=== PATIENT | female | born 1950 | race Caucasian/White ===

== ENCOUNTER 2025-07-12 11:44 | Observation (INO) | payer MEDICARE, SELFPAY ==
--- OUTSIDE RECORDS SUMMARY | 2024-06-26 03:00 | XMS_ITS ---
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 Rosa No Primary Care Provider [phone] Migration, Provider Unavailable Unavailable REASON FOR VISIT EMR-Akshat Encounters Encounter Location Date Provider Diagnosis [facility] [address] [place] [address] 06/26/2024 Provider Migration Plan Of Treatment Medication Medication Name Sig Start Date Stop Date Notes Metoprolol Succinate 50 mg Capsule(s) 1 BY MOUTH every day; Duration: 0 11/06/2021 08/12/2023 Rx Refill Request,discontinu ereason:Refilled *Pick strength-form from [facility] for eRX* Cardizem CD 240 MG Capsule Extended Release 24 Hour 1 Oral every day; Duration: 0 11/06/2021 11/06/2021 duplicate (diltiazem),discon tinuereason:Discon tinued hydroCHLOROthiazide 25 MG Tablet 1 Oral every day; Duration: 90 02/12/2024 02/12/2024 Rx Refill Request,discontinu ereason:Refilled Xarelto 20 MG Tablet 1 Oral every day; Duration: 02/12/2024 02/12/2024 Rx Refill Request,discontinu ereason:Refilled dilTIAZem HCl ER Coated Beads 240 MG Capsule Extended Release 24 Hour 1 Oral every day; Duration: 0 01/14/2022 06/27/2022 ,discontinuereason :Discontinued Benzonatate 100 MG Capsule 1 Oral three times a day; Duration: 10 05/04/2022 05/13/2022 Cipro 500 MG Tablet 1 Oral every 12 hours; Duration: 07/10/2023 07/16/2023 predniSONE 20 MG Tablet Oral as directed ; Duration: 08/28/2022 09/05/2022 hydrOXYzine HCl 10 MG Tablet 1 Oral two times a day; Duration: 08/28/2022 01/12/2023 ,discontinuereason :Discontinued Ezetimibe 10 MG Tablet 1 Oral every day; Duration: 02/12/2024 02/12/2024 Rx Refill Request,discontinu ereason:Refilled Escitalopram Oxalate 10 MG Tablet 1 Oral every day; Duration: 08/12/2023 12/15/2023 increasing to 20mg,discontinuere ason:Discontinued Metoprolol Succinate ER 100 MG Tablet Extended Release 24 Hour 1 Oral every day; Duration: 08/12/2023 08/12/2023 entered wrong dose,discontinuere ason:Discontinued Metoprolol Succinate ER 50 MG Tablet Extended Release 24 Hour 1 Oral every day; Duration: 02/12/2024 02/12/2024 Rx Refill Request,discontinu ereason:Refilled Ciprofloxacin HCl 500 MG Tablet 1 Oral two times a day; Duration: 03/07/2022 03/11/2022 Gabapentin 300 MG Capsule 1 Oral every night at bedtime; Duration: 08/12/2023 08/12/2023 Rx Refill Request,discontinu ereason:Refilled Triamcinolone Acetonide 0.1 % Cream External two times a day; Duration: 11/01/2022 06/15/2023 ,discontinuereason :Discontinued Escitalopram Oxalate 20 MG Tablet 1 Oral every day; Duration: 12/16/2023 06/12/2024 Lisinopril 20 MG Tablet 1 Oral two times a day; Duration: 11/24/2023 11/24/2023 Rx Refill Request,discontinu ereason:Refilled traMADol HCl 50 MG Tablet 0.5 to 1 Oral three times a day; Duration: 01/14/2022 01/12/2023 ,discontinuereason :Discontinued,PRN Reason:for pain Escitalopram Oxalate 5 MG Tablet 1 Oral two times a day; Duration: 08/28/2022 11/17/2022 ,discontinuereason :Refilled Omeprazole 20 MG Capsule Delayed Release 1 Oral at bed time; Duration: 90 04/22/2023 07/20/2023 hydroCHLOROthiazide 12.5 MG Tablet 1 Oral every day; Duration: 0 01/09/2022 03/06/2022 ,discontinuereason :Discontinued Next Appt Details Provider Name:Dr. Rosa smith, 06/15/2026 01:30:00 PM, [address] [place], [address], [phone] Progress Notes * LEVYChantelle PALENCIASushma:1950 (74 yo F)Acc No.[id number]:06/26/2024 Patient: Susan MCCLENDON :1950 A ge:73 Y S ex:Female Phone: Address:[address] [place] [address], [phone] * Refills Stop Ezetimibe Tablet, 10 MG, Oral, 90, 1, every day, 90 Stop Gabapentin Capsule, 300 MG, Oral, 90, 1, every night at bedtime, 90 Stop Lisinopril Tablet, 20 MG, Oral, 90, 1, every day, 90 Stop Benzonatate Capsule, 100 MG, Oral, 30, 1, three times a day, 10 Stop Escitalopram Oxalate Tablet, 5 MG, Oral, 90, 1, every night at bedtime, 90 Stop Ezetimibe Tablet, 10 MG, Oral, 90, 1, every day, 0 Stop Ezetimibe Tablet, 10 MG, Oral, 90, 1, every day, 90 Stop Lisinopril Tablet, 20 MG, Oral, 180, 1, two times a day, 90 Stop Ezetimibe Tablet, 10 MG, Oral, 90, 1, every day, 90 Stop Gabapentin Capsule, 300 MG, Oral, 90, 1, every night at bedtime, 90 Stop Gabapentin Capsule, 300 MG, Oral, 90, 1, every night at bedtime, 90 Stop Omeprazole Capsule Delayed Release, 20 MG, Oral, 90, 1, at bed time, 90 Stop Ezetimibe Tablet, 10 MG, Oral, 1, every day, 0 Stop Ezetimibe Tablet, 10 MG, Oral, 90, 1, every day, 90 Stop hydroCHLOROthiazide Tablet, 25 MG, Oral, 90, 1, every day, 90 Stop Omeprazole Capsule Delayed Release, 20 MG, Oral, 90, 1, at bed time, 90 Stop Gabapentin Capsule, 300 MG, Oral, 90, 1, every night at bedtime, 90 Stop Gabapentin Capsule, 300 MG, Oral, 90, 1, every night at bedtime, 90 Stop Lisinopril Tablet, 20 MG, Oral, 60, 1, two times a day, 0 Stop Lisinopril Tablet, 20 MG, Oral, 180, 1, two times a day, 90 Stop Lisinopril Tablet, 20 MG, Oral, 180, 1, two times a day, 90 Stop Metoprolol Succinate Capsule(s), 50 mg, BY MOUTH, 1, every day, 0 Stop Omeprazole Capsule Delayed Release, 20 MG, Oral, 90, 1, at bed time, 90 Stop Escitalopram Oxalate Tablet, 10 MG, Oral, 90, 1, every day, 90 Stop Escitalopram Oxalate Tablet, 20 MG, Oral, 90, 1, every day, 90 Stop Gabapentin Capsule, 300 MG, Oral, 90, 1, every night at bedtime, 90 Stop Omeprazole Capsule Delayed Release, 20 MG, Oral, 90, 1, at bed time, 90 Stop Triamcinolone Acetonide Cream, 0.1 %, External, 30, two times a day, 0 Stop Ciprofloxacin HCl Tablet, 500 MG, Oral, 10, 1, two times a day, 5 Stop hydrOXYzine HCl Tablet, 10 MG, Oral, 10, 1, two times a day, 0 Stop Lisinopril Tablet, 20 MG, Oral, 180, 1, two times a day, 90 Stop Lisinopril Tablet, 20 MG, Oral, 180, 1, two times a day, 90 Stop dilTIAZem HCl ER Coated Beads Capsule Extended Release 24 Hour, 240 MG, Oral, 90, 90 Stop Escitalopram Oxalate Tablet, 10 MG, Oral, 90, 1, every day, 90 Stop Lisinopril Tablet, 20 MG, Oral, 180, 1, two times a day, 90 Stop Omeprazole Capsule Delayed Release, 20 MG, Oral, 90, 1, at bed time, 90 Stop Ezetimibe Tablet, 10 MG, Oral, 90, 1, every day, 90 Stop dilTIAZem HCl ER Coated Beads Capsule Extended Release 24 Hour, 240 MG, Oral, 1, every day, 0 Stop Escitalopram Oxalate Tablet, 5 MG, Oral, 30, 1, every night at bedtime, 30 Stop Ezetimibe Tablet, 10 MG, Oral, 90, 1, every day, 0 Stop predniSONE Tablet, 20 MG, Oral, 18, as directed, 9 Stop Cipro Tablet, 500 MG, Oral, 14, 1, every 12 hours, 7 Stop Ezetimibe Tablet, 10 MG, Oral, 90, 90 Stop hydroCHLOROthiazide Tablet, 25 MG, Oral, 90, 1, every day, 90 Stop Omeprazole Capsule Delayed Release, 20 MG, Oral, 90, 1, at bed time, 90 Stop Xarelto Tablet, 20 MG, Oral, 90, 1, every day, 0 Stop Xarelto Tablet, 20 MG, Oral, 90, 1, every day, 90 Stop Xarelto Tablet, 20 MG, Oral, 90, 1, every day, 90 Stop Cardizem CD Capsule Extended Release 24 Hour, 240 MG, Oral, 1, every day, 0 Stop hydroCHLOROthiazide Tablet, 25 MG, Oral, 90, 1, every day, 90 Stop Xarelto Tablet, 20 MG, Oral, 90, 1, every day, 90 Stop Gabapentin Capsule, 300 MG, Oral, 90, 1, every night at bedtime, 90 Stop hydroCHLOROthiazide Tablet, 25 MG, Oral, 90, 1, every day, 90 Stop Escitalopram Oxalate Tablet, 5 MG, Oral, 82, 1, two times a day, 41 Stop Lisinopril Tablet, 20 MG, Oral, 180, 1, two times a day, 90 Stop traMADol HCl Tablet, 50 MG, Oral, 30, 0.5 to 1, three times a day, 0 Stop Lisinopril Tablet, 20 MG, Oral, 1, every day, 0 Stop Omeprazole Capsule Delayed Release, 20 MG, Oral, 90, 1, at bed time, 90 Stop Xarelto Tablet, 20 MG, Oral, 1, every day, 0 Stop Metoprolol Succinate ER Tablet Extended Release 24 Hour, 100 MG, Oral, 90, 1, every day, 90 Stop Metoprolol Succinate ER Tablet Extended Release 24 Hour, 50 MG, Oral, 90, 1, every day, 90 Stop Gabapentin Capsule, 300 MG, Oral, 1, every night at bedtime, 0 Stop Gabapentin Capsule, 300 MG, Oral, 90, 1, every night at bedtime, 90 Stop hydroCHLOROthiazide Tablet, 12.5 MG, Oral, 1, every day, 0 Stop hydroCHLOROthiazide Tablet, 25 MG, Oral, 1, every day, 0 Stop Omeprazole Capsule Delayed Release, 20 MG, Oral, 90, 1, at bed time, 90 Stop Omeprazole Capsule Delayed Release, 20 MG, Oral, 90, 1, at bed time, 90 Stop Metoprolol Succinate ER Tablet Extended Release 24 Hour, 50 MG, Oral, 90, 1, every day, 90 Subjective: * Chief Complaints: * E MR-Akshat Objective: Past Vitals:* 08/07/2023 BP: 118/70 mm Hg, HR: 99 /mi n, Oxygen sat %: 97 %, Wt: 280.01 lbs, Wt-k.01 kg * 07/10/2023 BP: 138/76 mm Hg, HR: 57 /mi n, Oxygen sat %: 97 %, Wt: 277.12 lbs, Wt-k.70 kg * * Date:
--- OUTSIDE RECORDS SUMMARY | 2024-06-27 03:00 | XMS_ITS ---
Author Organization [facility] Address [address] [place] [address] Care Team Providers Care Visitor Services Assistant Name Role Phone Dr. Rosa No Primary Care Provider [phone] Migration, Provider Unavailable Unavailable Allergies Allergen (clinical drug ingredient) Drug/Non Drug Allergy documented on EMR Reaction Allergy Type Onset Date Status Aleve hives Drug Allergy 11/06/2021 Active aspirin Aspirin hives Drug Allergy 11/06/2021 Active Biaxin hives Drug Allergy 11/06/2021 Active Darvon Altered mental status Drug Allergy 11/06/2021 Active erythromycin Erythromycin hives Drug Allergy 11/06/2021 Active azithromycin Zithromax hives Drug Allergy 11/06/2021 Act luther codeine Codeine euphoria Drug Allergy 11/06/2021 Active Morphine and Codiene TALWIN caused hives Drug Allergy 01/09/2022 Active Non-steroidal anti-inflammatory agent (FN) NSAIDs hives Drug Allergy 11/06/2021 Active Penicillin hives Drug Allergy 11/06/2021 Activ e salicylate (FN) Salicylates hives Drug Allergy Active Substance with sulfonamide structure and antibacterial mechanism of action (substance) Sulfa Antibiotics hives Drug Allergy 11/06/2021 Active REASON FOR VISIT EMR-Akshat Medications Medication SIG (Take, Route, Frequency, Duration) Notes Start Date End Date Status Gabapentin 300 MG Capsule 1 Oral every n ight at bedtime; Duration: 06/09/2024 12/05/2024 Active Lisinopril 20 MG Tablet 1 Oral two times a day; Duration: 06/08/2024 12/04/2024 Active Xarelto 20 MG Tablet 1 Oral every day; Duration: 06/09/2024 12/05/2024 Active hydroCHLOROthiazide 25 MG Tablet 1 Oral every day; Duration: 06/09/2024 12/05/2024 Active Ezetimibe 10 MG Tablet 1 Oral every day; Duration: 06/09/2024 12/05/2024 Active Metoprolol Succinate ER 50 M G Tablet Extended Release 24 Hour 1 Oral every day; Duration: 06/09/2024 12/05/2024 Active Social History Social History Additional Details Category Social Info Options Details Migrated Social History Migrated Social History Marital status: , Number of children:2 , Employment:Retired , Tobacco history:Never smoker Encounters Encounter Location Date Provider Diagnosis [facility] [address] [place] [address] 06/27/2024 Provider Migration Plan Of Treatment Next Appt Details Provider Name:Dr. Rosa smith, 06/15/2026 01:30:00 PM, [address], [place], [address], [phone] Progress Notes * LEVYChantelle PALENCIASharonB:1950 (74 yo F)Acc No.[id number]:06/27/2024 Patient: Susan MCCLENDON :1950 A ge:73 Y S ex:Female Phone: Address:[address] [place] [address], [phone] Subjective: * Chief Complaints: * E MR-Akshat * Surgical History: Tubal ligation ,notes : 1979 _ Colonoscopy ,notes : 2019 _ Arthrocentesis 0 Arthroplasty, knee, condyle and plateau; medial AND lateral compartments with or without patella res ,notes : left 02/19/2019 Cholecystectomy 1 Knee arthroplasty ,notes : right - total knee 7 * Family History: F ather: Hypertension. M other: Breast cancer, H ypertension. D aughter: Breast cancer, H ypertension. * Social History: M igrated Social History: M igrated Social History: Marital status:,Number of children:2,Employment:Retired,Tobacco history:Never smoker. * Medications: T akingGabapentin 300 MG Capsule 1 Oral every night at bedtime , stop date 12/05/2024Lisinopril 20 MG Tablet 1 Oral two times a day , stop date 12/04/2024Ezetimibe 10 MG Tablet 1 Oral every day , stop date 12/05/2024Metoprolol Succinate ER 50 MG Tablet Extended Release 24 Hour 1 Oral every day , stop date 12/05/2024hydroCHLOROthiazide 25 MG Tablet 1 Oral every day , stop date 12/05/2024Xarelto 20 MG Tablet 1 Oral every day , stop date 12/05/2024Taking Gabapentin 300 MG Capsule 1 Oral every night at bedtime , stop date 12/05/2024Taking Lisinopril 20 MG Tablet 1 Oral two times a day , stop date 12/04/2024Taking Ezetimibe 10 MG Tablet 1 Oral every day , stop date 12/05/2024Taking Metoprolol Succinate ER 50 MG Tablet Extended Release 24 Hour 1 Oral every day , stop date 12/05/2024Taking hydroCHLOROthiazide 25 MG Tablet 1 Oral every day , stop date 12/05/2024Taking Xarelto 20 MG Tablet 1 Oral every day , stop date 12/05/2024 * Allergies: A leve: hives - Allergy - Onset Date 11/06/2021spirin: hives - Allergy - Onset Date 11/06/2021iaxin: hives - Allergy - Onset Date 11/06/2021arvon: Altered mental status - Allergy - Onset Date 11/06/2021Erythromycin: hives - Allergy - Onset Date 11/06/2021Zithromax: hives - Allergy - Onset Date 11/06/2021odeine: euphoria - Allergy - Onset Date 11/06/2021Morphine and Codiene : TALWIN caused hives - Allergy - Onset Date 01/09/2022NSAIDs: hives - Allergy - Onset Date 11/06/2021enicillin: hives - Allergy - Onset Date 11/06/2021alicylates: hives - Allergy - Onset Date 11/06/2021ulfa Antibiotics: hives - Allergy - Onset Date 11/06/2021 Objective: Past Vitals:* 08/07/2023 BP: 118/70 mm Hg, HR: 99 /mi n, Oxygen sat %: 97 %, Wt: 280.01 lbs, Wt-k.01 kg * 07/10/2023 BP: 138/76 mm Hg, HR: 57 /mi n, Oxygen sat %: 97 %, Wt: 277.12 lbs, Wt-k.70 kg * * Date:
--- NOTE | ~2025-07-12 | CT_ITS ---
EXAM/PROCEDURE: CT abdomen pelvis wo con HISTORY: CT showing possible ruptured appy COMPARISON: None available. TECHNIQUE: Noncontrast CT of abdomen and pelvis FINDINGS: Along the inferior margin of the cecum, there is a 2.9 x 2.4 x 2.2 cm complex appearing fluid accumulation with adjacent strandy changes and small component of possible normal size appendix extending anteriorly on image 64 series 601. No free air or pneumatosis seen. Mild sigmoidal diverticular disease with mild stranding about the sigmoid colon as seen on images 61 through 69 in the left para midline region. No severe inflammatory appearing changes. No hydroureteronephrosis. Gallbladder removed. Fatty liver changes. Lung bases clear and heart size normal. Pancreas spleen stomach and adrenal glands appear normal. No bulky mesenteric or retroperitoneal lymphadenopathy or masses. Diffuse degenerative changes throughout the bones. IMPRESSION: 1. A 2.9 cm complex fluid accumulation in the expected location of the appendix may represent ruptured appendix and developing abscess. 2. Minimal pericolonic strandy changes about the proximal sigmoid colon with diverticuli are noted; very early or mild diverticulitis in this area is not excluded. Reviewed, dictated and finalized at location A. IDDING MACHINE OPERATOR IMPRESSION: 1. A 2.9 cm complex fluid accumulation in the expected location of the appendix may represent ruptured appendix and developing abscess. 2. Minimal pericolonic strandy changes about the proximal sigmoid colon with di verticuli are noted; very early or mild diverticulitis in this area is not excl uded.
--- OUTSIDE RECORDS SUMMARY | 2025-07-12 09:08 | XMS_ITS | Encounter Summary ---
Author Organization [facility] Healthcare Address [address] [place] [address] Care Team Providers Care Automation Tester Name Role Phone Rosa No MD Primary Care Provider Izzy Gomez MD Unavailable [phone] Reason for Referral * MRI/CAT/PET Scan (Routine) - Closed Specialty Diagnoses / Procedures Referred By Micah alcantara Referred To Contact Radiology Diagnoses Endometrial cancer Procedures CT Chest Abdomen Pelvis W Contrast Daja Quiñones MD [address] [address] Phone: tel: fax: [address] [phone] Referral ID Status Reason Start Date Expiration Date Visits Re quested Visits Authorized [id number] Closed 03/31/2025 04/30/2026 1 1 OW FILLER Reason for Visit * MRI/CAT/PET Scan (Routine) - Closed Specialty Diagnoses / Procedures Referred By Contac t Referred To Contact Radiology Diagnoses Endometrial cancer Procedures CT Chest Abdomen Pelvis W Contrast Daja Quiñones MD [address] [address] Phone: tel: fax: [address] [phone] Referral ID Status Reason Start Date Expiration Date Visits Re quested Visits Authorized [id number] Closed 03/31/2025 04/30/2026 1 1 Encounter Details Date Type Department Care Team (Latest Contact Info) Description 07/12/2025 9:08 AM PILLOW FILLER Hospital Encounter [facility] [address] [place] [address] Endometrial cancer Social History Tobacco Use Types Packs/Day Years Used Date Smoking Tobacco: Never Smokeless Tobacco: Never Alcohol Use Standard Drinks/Week Comments Never 0 (1 standard drink = 0.6 oz pur e alcohol) AUDIT-C Answer Date Recorded Q1: How often do you have a drink containing alcohol? Never 04/07/2025 Q2: How many drinks containi ng alcohol do you have on a typical day when you are drinking? Patient does not drink Q3: How often do you have si x or more drinks on one occasion? Never 04/07/2025 Personal Safety Answer Date Recorded Have you ever been in or are you currently in a harmful physical or emotional relationship or is someone making you feel afraid or unsafe? Denies 04/07/2025 Comments No Sex and Gender Information Value Date Recorded Sex Assigned at Not on file Legal Sex Female 6:09 PM PILLOW FILLER Gender Identity Not on file Sexual Orientation Not on file documented as of this encounter Plan of Treatment Not on file documented as of this encounter Procedures Procedure Name Priority Date/Time Associated Diagnosis Comments CT CHEST ABDOMEN PELVIS W CONTRAST Schedule Routine, Read Routine (OP Routine) 07/12/2025 10:17 AM PILLOW FILLER Endometrial cancer documented in this encounter Results * CT Chest Abdomen Pelvis W Contrast (07/12/2025 10:17 AM PILLOW FILLER) Anatomical Region Laterality Modality Body N/A Computed Tomogra phy 07/12/2025 11:2 7 AM PILLOW FILLER Impressions 07/12/2025 12:53 PM PILLOW FILLER 1. Findings suggestive of appendicitis with likely complicated by contained perforation with adjacent phlegmonous change. No organized fluid collection. 2. No evidence of new metastatic disease in the abdomen or pelvis. Interval decrease in size of a left retroperitoneal soft tissue nodule. 3. Stable bilateral pulmonary nodules. 4. Similar appearance of fat-containing lesion along the left sacral nerve roots which could represent fibrolipomatous hamartoma/lipomatosis of the nerve. The Critical results were discussed with Dr. Mcdaniels by Dr. Bola Basilio MD on 07/12/2025 11:26 AM. Dictated by: Bola Basilio MD The radiology attending physician has personally reviewed this study, and had reviewed and/or edited this written report and agrees with it. Electronically signed by: Ari Walters M.D. Narrative 07/12/2025 12:53 PM PILLOW FILLER EXAMINATION: Computed tomography of the chest, abdomen and pelvis with intravenous contrast HISTORY: 74-year-old woman with endometrial cancer. TECHNIQUE: Transaxial computed tomographic images of the chest, abdomen and pelvis were obtained with intravenous contrast according to the standard protocol after the uneventful administration of 120 mL Opti-Ray 350 intravenous contrast. COMPARISON: Multiple exams including 11/11/2024 CT and on 06/16/2025 MRI. FINDINGS: Chest: Right internal jugular port catheter tip terminates in the right atrium. Thyroid is normal. No supraclavicular, axillary, mediastinal, or hilar lymphadenopathy. Thoracic aorta and main pulmonary artery are normal in caliber. Heart size is normal. No pericardial effusion. No pleural effusion or pneumothorax. There are scattered pulmonary nodules that are unchanged from prior exam. For example there is a 3 mm nodule at the right lung apex at axial image 22, a 3 mm nodule at the periphery of the right upper lung at axial image 37, and a 2 mm nodule in the left lower lobe at axial image 80. Abdomen/Pelvis: Normal liver surface morphology. Portal vasculature is patent. Hepatic steatosis. Segment 6 hemangioma at axial image 144 is better characterized on MRI. No discrete adrenal lesion. Spleen, pancreas, stomach, and duodenum are normal. Gallbladder surgically absent. Similar prominence of the common bile duct. No intrahepatic biliary dilation. Kidneys enhance symmetrically. No hydronephrosis. Right renal inferior pole cortical scarring. No hydronephrosis. Urinary bladder is decompressed. Adjacent to the mid left ureter, there is a enhancing 1.4 x 1.0 cm soft tissue nodule, decreased in size from October 2024 at which point it measured 1.8 cm x 1.7 cm (series 2, image 195). Uterus is absent. No suspicious adnexal lesion. Colonic diverticulosis. No evidence of bowel obstruction. There is fat stranding in the right lower quadrant with a thick-walled and enhancing appendix measuring up to 9 mm in caliber at image 231. The wall is discontinuous (for example see coronal series 4 image 54). There is an adjacent low-density ill-defined area of hypoattenuation measuring 1.9 x 1.6 cm at axial image 233. No free air. There is similar stranding adjacent to the sigmoid colon at axial image 239, likely representing sequela of diverticulitis. Abdominal aorta is nonaneurysmal. Mesenteric vasculature is patent. No new abdominal or pelvic lymphadenopathy. Similar appearance of a fatty lesion along the left sacral nerve branches at axial image 263. Osseous windows demonstrates no aggressive lytic or blastic lesion. Diffuse idiopathic skeletal hyperostosis. Procedure Note Ari Walters MD - 07/12/2025 EXAMINATION: Computed tomography of the chest, abdomen and pelvis with intravenous contrast HISTORY: 74-year-old woman with endometrial cancer. TECHNIQUE: Transaxial computed tomographic images of the chest, abdomen and pelvis were obtained with intravenous contrast according to the standard protocol after the uneventful administration of 120 mL Opti-Ray 350 intravenous contrast. COMPARISON: Multiple exams including 11/11/2024 CT and on 06/16/2025 MRI. FINDINGS: Chest: Right internal jugular port catheter tip terminates in the right atrium. Thyroid is normal. No supraclavicular, axillary, mediastinal, or hilar lymphadenopathy. Thoracic aorta and main pulmonary artery are normal in caliber. Heart size is normal. No pericardial effusion. No pleural effusion or pneumothorax. There are scattered pulmonary nodules that are unchanged from prior exam. For example there is a 3 mm nodule at the right lung apex at axial image 22, a 3 mm nodule at the periphery of the right upper lung at axial image 37, and a 2 mm nodule in the left lower lobe at axial image 80. Abdomen/Pelvis: Normal liver surface morphology. Portal vasculature is patent. Hepatic steatosis. Segment 6 hemangioma at axial image 144 is better characterized on MRI. No discrete adrenal lesion. Spleen, pancreas, stomach, and duodenum are normal. Gallbladder surgically absent. Similar prominence of the common bile duct. No intrahepatic biliary dilation. Kidneys enhance symmetrically. No hydronephrosis. Right renal inferior pole cortical scarring. No hydronephrosis. Urinary bladder is decompressed. Adjacent to the mid left ureter, there is a enhancing 1.4 x 1.0 cm soft tissue nodule, decreased in size from October 2024 at which point it measured 1.8 cm x 1.7 cm (series 2, image 195). Uterus is absent. No suspicious adnexal lesion. Colonic diverticulosis. No evidence of bowel obstruction. There is fat stranding in the right lower quadrant with a thick-walled and enhancing appendix measuring up to 9 mm in caliber at image 231. The wall is discontinuous (for example see coronal series 4 image 54). There is an adjacent low-density ill-defined area of hypoattenuation measuring 1.9 x 1.6 cm at axial image 233. No free air. There is similar stranding adjacent to the sigmoid colon at axial image 239, likely representing sequela of diverticulitis. Abdominal aorta is nonaneurysmal. Mesenteric vasculature is patent. No new abdominal or pelvic lymphadenopathy. Similar appearance of a fatty lesion along the left sacral nerve branches at axial image 263. Osseous windows demonstrates no aggressive lytic or blastic lesion. Diffuse idiopathic skeletal hyperostosis. IMPRESSION: 1. Findings suggestive of appendicitis with likely complicated by contained perforation with adjacent phlegmonous change. No organized fluid collection. 2. No evidence of new metastatic disease in the abdomen or pelvis. Interval decrease in size of a left retroperitoneal soft tissue nodule. 3. Stable bilateral pulmonary nodules. 4. Similar appearance of fat-containing lesion along the left sacral nerve roots which could represent fibrolipomatous hamartoma/lipomatosis of the nerve. The Critical results were discussed with Dr. Mcdaniels by Dr. Bola Basilio MD on 07/12/2025 11:26 AM. Dictated by: Bola Basilio MD The radiology attending physician has personally reviewed this study, and had reviewed and/or edited this written report and agrees with it. Electronically signed by: Ari Walters M.D. Daja Quiñones MD IM CT PROCEDURES Final Result documented in this encounter Visit Diagnoses Diagnosis Endometrial cancer Malignant neoplasm of corpus uteri, except isthmus documented in this encounter Administered Medications Inactive Administered Medications - up to 3 most recent administrations Medication Order MAR Action Action Date Dose Rate Site heparin 100 unit/mL injection 500 Units 500 Units (5 mL), intra-catheter, Once, On 07/12/25 at 1015, For 1 dose, For port decannulation., Indications: Maintain Patency of Indwelling Vascular CatheterIndications:Maintasvetlana n Patency of Indwelling Vascular Catheter Given by Other 07/12/2025 10:12 AM PILLOW FILLER 500 Units ioversoL (OPTIRAY 350) syringe 125 mL 125 mL, intravenous, Once in imaging, contrast, Starting on Fri07/12/25 at 1003, For 1 dose Contrast Given 07/12/2025 10:18 AM PILLOW FILLER 120 mL documented in this encounter Orders Medications Ordered That Akshat ht Not Have Been Administered Count Last Ordered Date First Ordered Date sodium chloride 0.9% flush 10-20 mL 1 07/12 Nursing Count Last Ordered Date First Orde red Date MAINTAIN IV ACCESS 1 07/12/2025 IV Count Last Ordered Date First Orde red Date ACCESS IMPLANTED PORT 1 07/12/2025 DECANNULATE IMPLANTED PORT 1 07/12/2025 documented in this encounter Care Teams Automation Tester Relationship Specialty Start Date End Date Rosa No MD [address] [place] [address] PCP - General Family Medicine 12/09/23 Izzy Gomez MD [address] [facility] [place] [address] Radiation Oncologist Radiation Oncology 12/23/23 documented as of this encounter
--- OUTSIDE RECORDS SUMMARY | 2025-07-12 09:08 | XMS_ITS | Encounter Summary ---
Author Organization [facility] Healthcare Address [address] [place] [address] Care Team Providers Care Engine Cowling Installer Name Role Phone Rosa No MD Primary Care Provider Izzy Gomez MD Unavailable [phone] Reason for Referral * MRI/CAT/PET Scan (Routine) - Closed Specialty Diagnoses / Procedures Referred By Micah alcantara Referred To Contact Radiology Diagnoses Endometrial cancer Procedures CT Chest Abdomen Pelvis W Contrast Daja Quiñones MD [address] [employer] [address] [address] Phone: tel: fax: [address] [phone] Referral ID Status Reason Start Date Expiration Date Visits Re quested Visits Authorized [id number] Closed 03/31/2025 04/30/2026 1 1 ON ACCOUNTANT Reason for Visit * MRI/CAT/PET Scan (Routine) - Closed Specialty Diagnoses / Procedures Referred By Contac t Referred To Contact Radiology Diagnoses Endometrial cancer Procedures CT Chest Abdomen Pelvis W Contrast Daja Quiñones MD [address] [employer] [address] [address] Phone: tel: fax: [address] [phone] Referral ID Status Reason Start Date Expiration Date Visits Re quested Visits Authorized [id number] Closed 03/31/2025 04/30/2026 1 1 Encounter Details Date Type Department Care Team (Latest Contact Info) Description 07/12/2025 9:08 AM CARBON ACCOUNTANT Hospital Encounter [facility] [address] [place] [address] Endometrial cancer Social History Tobacco Use Types [...] on file Legal Sex Female 6:09 PM CARBON ACCOUNTANT Gender Identity Not on file Sexual Orientation Not on file documented as of this encounter Plan of Treatment Not on file documented as of this encounter Procedures Procedure Name Priority Date/Time Associated Diagnosis Comments CT CHEST ABDOMEN PELVIS W CONTRAST Schedule Routine, Read Routine (OP Routine) 07/12/2025 10:17 AM CARBON ACCOUNTANT Endometrial cancer documented in this encounter Results * CT Chest Abdomen Pelvis W Contrast (07/12/2025 10:17 AM CARBON ACCOUNTANT) Anatomical Region Laterality Modality Body N/A Computed Tomogra phy 07/12/2025 11:2 7 AM CARBON ACCOUNTANT Impressions 07/12/2025 12:53 PM CARBON ACCOUNTANT 1. Findings suggestive of appendicitis with likely [...] Ari Walters M.D. Narrative 07/12/2025 12:53 PM CARBON ACCOUNTANT EXAMINATION: Computed tomography of the chest, abdomen [...] Catheter Given by Other 07/12/2025 10:12 AM CARBON ACCOUNTANT 500 Units ioversoL (OPTIRAY 350) syringe 125 mL 125 mL, intravenous, Once in imaging, contrast, Starting on Fri07/12/25 at 1003, For 1 dose Contrast Given 07/12/2025 10:18 AM CARBON ACCOUNTANT 120 mL documented in this encounter Orders [...] 07/12/2025 documented in this encounter Care Teams Engine Cowling Installer Relationship Specialty Start Date End Date Rosa No MD [address] [place] [address] PCP - General Family Medicine 12/09/23 Izzy Gomez MD [address] [facility] [place] [address] Radiation Oncologist Radiation Oncology 12/23/23 documented as of this encounter
--- OUTSIDE RECORDS SUMMARY | 2025-07-12 11:20 | XMS_ITS | Encounter Summary ---
Author Organization [facility] Healthcare Address [address] [place] [address] Care Team Providers Care Can Line Examiner Name Role Phone Rosa No MD Primary Care Provider Izzy Gomez MD Unavailable [phone] Reason for Visit * Reason Comments Follow-up Encounter Details Date Type Department Care Team ([facility] st Contact Info) Description 07/12/2025 11:20 AM STONE CARRIAGE OPERATOR Office Visit [facility] Radiation Oncology [address] [facility] [place] [address] Trini Denny PA [address] [facility] [address] [place] [address] Endometrial cancer Social History Tobacco Use Types [...] on file Legal Sex Female 6:09 PM STONE CARRIAGE OPERATOR Gender Identity Not on file Sexual Orientation Not on file documented as of this encounter Last Filed Vital Signs Vital Sign Reading Time Taken Comments Blood Pressure - - Pulse - - Temperature - - Respiratory Rate - - Oxygen Saturation - - Inhaled Oxygen Concentration - - Weight 131.8 kg (290 lb 9.6 oz) 025 10:26 AM STONE CARRIAGE OPERATOR Height 165.1 cm (5' 5) 07/12/2025 10:2 6 AM STONE CARRIAGE OPERATOR Body Mass Index 48.36 07/12/2025 10:26 AM STONE CARRIAGE OPERATOR documented in this encounter Plan of Treatment Not on file documented as of this encounter Visit Diagnoses Diagnosis Endometrial cancer Malignant neoplasm of corpus uteri, except isthmus documented in this encounter Historical Medications * This list may reflect changes made after this encounter. Medication Sig Dispense Quantity Refills Last Filled Start D ate End Date fluorometholone (FML) 0.1 % ophthalmic suspension 04/11/2025 added in this encounter Orders Appointment Requests Count Last Ordered Date Fi rst Ordered Date ONCBCN RAD ONC CLINIC APPOINTMENT REQUEST 2 07/12/2025 documented in this encounter Care Teams Can Line Examiner Relationship Specialty Start Date End Date Rosa No MD [address] [place] [address] PCP - General Family Medicine 12/09/23 Izzy Gomez MD [address] [facility] [place] [address] Radiation Oncologist Radiation Oncology 12/23/23 documented as of this encounter
--- OUTSIDE RECORDS SUMMARY | 2025-07-12 11:20 | XMS_ITS | Encounter Summary ---
Author Organization [facility] Healthcare Address [address] [place] [address] Care Team Providers Care Vacuum Cooker Operator Name Role Phone Rosa No MD Primary Care Provider Izzy Gomez MD Unavailable [phone] Reason for Visit * Reason Comments Follow-up Encounter Details Date Type Department Care Team ([facility] st Contact Info) Description 07/12/2025 11:20 AM REHABILITATION SUPERVISOR Office Visit [facility] Advanced Medicine Radiation Oncology [address] [facility] [place] [address] Trini Denny PA [address] [facility] [address] [place] [address] Endometrial cancer Social History Tobacco Use Types [...] on file Legal Sex Female 6:09 PM REHABILITATION SUPERVISOR Gender Identity Not on file Sexual Orientation Not on file documented as of this encounter Last Filed Vital Signs Vital Sign Reading Time Taken Comments Blood Pressure - - Pulse - - Temperature - - Respiratory Rate - - Oxygen Saturation - - Inhaled Oxygen Concentration - - Weight 131.8 kg (290 lb 9.6 oz) 025 10:26 AM REHABILITATION SUPERVISOR Height 165.1 cm (5' 5) 07/12/2025 10:2 6 AM REHABILITATION SUPERVISOR Body Mass Index 48.36 07/12/2025 10:26 AM REHABILITATION SUPERVISOR documented in this encounter Plan of Treatment [...] 07/12/2025 documented in this encounter Care Teams Vacuum Cooker Operator Relationship Specialty Start Date End Date Rosa No MD [address] [place] [address] PCP - General Family Medicine 12/09/23 Izzy Gomez MD [address] [facility] [place] [address] Radiation Oncologist Radiation Oncology 12/23/23 documented as of this encounter
[2025-07-12 11:55] VITALS: BP 123/82; PULSE 64; RESP 14; TEMP 37.1; O2SAT 96
[2025-07-12 12:38] LABS: Add Urine Microscopic? NO; Appearance Urine Clear (Clear); Glucose Urine UA Negative (Negative); Leukocyte Esterase Ur Negative LEU/UL (Negative); Nitrate Urine Negative (Negative); Specific Grav Ur > 1.045 (1.001-1.035)
[2025-07-12 12:42] LABS: Hematocrit 34.3 % (37.0-47.0); Hemoglobin 11.3 g/dL (12.0-15.0); Immature Granulocyte Percent A 0.6 % (0-0.5); Lymphocytes Absolute Auto 0.97 K/mm3 (0.9-3.2); Mean Corpuscular HGB Conc 32.9 g/dl (32-36); Mean Corpuscular Hemoglobin 32.6 pg (26-34); Mean Corpuscular Volume 98.8 fl (80-100); Nucleated Red Blood Cells Absolute Auto 0.000 K/mm3 (0.0-0.012); Nucleated Red Blood Cells Perc 0.0 % (0.0-0.2); Platelet Count Result 269 k/mm3 (150-375); Red Blood Count 3.47 M/mm3 (4.2-5.4); White Blood Count 6.8 K/mm3 (4.5-10.0)
[2025-07-12 12:48] LABS: Alanine Aminotransferase 15 U/L (6-35); Albumin Level 3.9 g/dL (3.5-5.1); Alkaline Phosphatase 129 U/L (38-126); Anion Gap 8 mmol/L (4-12); Aspartate Amino Transferase 22 U/L (14-36); Bilirubin,Total 0.7 mg/dL (0.2-1.3); Blood Urea Nitrogen 15 mg/dL (7-17); Calcium 9.2 mg/dL (8.4-10.2); Carbon Dioxide 28 mmol/L (22-30); Chloride 102 mmol/L (98-107); Estimated CRCL calculation 69 ml/min; Estimated Glomerular Filt Rate > 60; Glucose 109 mg/dL (65-110); Lipase 334 U/L (23-300); Potassium 4.2 mmol/L (3.4-5.0); Sodium 138 mmol/L (137-145); Total Protein 7.1 g/dL (6.3-8.2)
--- OUTSIDE RECORDS SUMMARY | 2025-07-12 14:04 | XMS_ITS | Patient Health Record ---
Author Organization [facility] dicine Address [address] [place] [address] Care Team Providers Care Director Of Vendor Management Name Role Phone Dr. Mj Copeland Primary Care Provider [phone] Cass Wei Unavailable [phone] Dr. Dulce Haywood Unavailable [phone] Allergies Allergen (clinical drug ingredient) Drug/Non Drug [...] Sulfa Antibiotics hives Drug Allergy 11/06/2021 Active Results Component Value Reference Range Notes MG SCREENING W JUAN CARLOSScott ANGELA Reviewed date:07/07/2025 12:37:55 PM Interpretation: Performing Lab: Notes/Report: This is a summary report. The complete report is available in the patient's medical record. If you cannot access the medical record, please contact the sending organization for a detailed fax or copy. [address] [place] [address] EXAMINATION: Digital bilateral screening mammogram with 3-D tomosynthesis EXAM DATE/TIME: 07/05/2025 8:06 AM REASON FOR EXAM: Routine screening. Family history of breast cancer in mother at age 65 and daughter at age 38. COMPARISON: Screening mammogram 01/16/2024, 01/13/2023, 01/11/2021, 01/06/2020. TECHNIQUE: Digital screening mammography of both breasts was performed in addition to 3-D Tomosynthesis technique. This study was read with the assistance of a computer-aided detection system. TISSUE DENSITY: There are scattered areas of fibroglandular density. FINDINGS: Scattered benign-appearing calcifications noted. Small mass in the mid and slightly inferior right breast, anterior to mid depth. No suspicious masses, malignant appearing calcifications, skin thickening or other abnormalities are identified within the left breast. =====IMPRESSION:===== Small right breast mass. ASSESSMENT: ACR BI-RADS 0 - INCOMPLETE: NEEDS ADDITIONAL IMAGING EVALUATION Recommendation: 1: Additional Imaging Right COMMENTS: Diagnostic mammogram with spot compression views and potential ultrasound, right. Ordered By: MJ COPELAND Interpreted By: Bernard Betancourt MD, 07/07/2025 9:35 AM Endoscopic Retrograde Cholan giopancreatography (ERCP) Reviewed date:12/06/2024 10:03:55 AM Interpretation:Negative Performing Lab: Notes/Report: Negative Cologuard Reviewed date:05/23/2025 11:55:02 AM Interpretation:Negative Performing Lab: Notes/Report: Negative Hemoglobin A1c {Glycosylated } Reviewed date:07/07/2025 02:18:20 PM Interpretation: Performing Lab: Notes/Report: Vitamin D 25 Hydroxy Reviewed date:07/07/2025 02:19:08 PM Interpretation: Performing Lab: Notes/Report: CBC w Auto Diff Reviewed date:07/07/2025 02:19:49 PM Interpretation: Performing Lab: Notes/Report: Comprehensive Metabolic Pane l Reviewed date:07/07/2025 02:19:22 PM Interpretation: Performing Lab: Notes/Report: Lipid Panel {Chol, Trig, HDL , LDL} Reviewed date:07/07/2025 02:18:46 PM Interpretation: Performing Lab: Notes/Report: Magnesium Reviewed date:07/07/2025 02:19:32 PM Interpretation: Performing Lab: Notes/Report: Vitamin B12 Reviewed date:07/07/2025 02:18:58 PM Interpretation: Performing Lab: Notes/Report: Free T4 And TSH Reviewed date:07/07/2025 02:18:32 PM Interpretation: Performing Lab: Notes/Report: MAMMOGRAM, SCREENING Reviewed date:07/07/2025 03:14:13 PM Interpretation: Performing Lab: Notes/Report: Reason For Referral No Information Medications Medication SIG (Take, Route, Frequency, Duration) Notes Start Date End Date Status Ezetimibe 10 MG Tablet 1 tablet Orally daily; Duration: 90 days 06/09/2024 Active Escitalopram Oxalate 5 MG Tablet 1 tablet Orally daily; Duration: 90 days 08/30/2024 Active Lisinopril 20 MG Tablet 1 tablet Orally twice a day; Duration: 90 days 06/08/2024 Active Gabapentin 300 MG Capsule 1 capsule Orally daily; Duration: 90 days at bedtime 06/09/2024 Active Xarelto 20 MG Tablet 1 tablet with food Orally daily; Duration: 90 days Active Metoprolol Succinate ER 50 M G Tablet Extended Release 24 Hour 1 tablet Orally daily; Duration: 90 days 06/09/2024 Active hydroCHLOROthiazide 25 MG Tablet 1 tablet in the morning Orally daily; Duration: 90 days 06/09/2024 Active Magnesium Oxide 400 MG Tablet 1 tablet w ith food Orally Once a day 06/14/2025 Active Immunizations Vaccine Route Administration Date Status Comments Pneumococcal conjugate PCV 13 IM Intramuscular 09/04/2017 Administered Source VFC Code: : Pneumococcal polysaccharide PPV23 IM Intramuscular 02/19/2019 Administered Source VFC Code: : RSV-MAb (Respiratory syncytial virus immune globulin) IM Intramuscular 06/16/2023 Administered ,sourcename : New immunization record ,immstatus : Complete Tdap IM Intramuscular 11/01/2022 Partially Administered ,sourcename : New immunization record ,immstatus : Partially Administered Jim Covid-19 Vaccine IM Intramuscular 10/09/2020 Administered Source VFC Code: : Influenza, seasonal, injectable, preservative free, 3 yrs and above Unknown 06/11/2013 Administered Source VFC Code: : Influenza, high-dose seasonal, quadrivalent, preservative free >65 yrs IM Intramuscular 05/04/2018 Administered Source VFC Code: : Influenza, high-dose seasonal, quadrivalent, preservative free >65 yrs IM Intramuscular 05/07/2019 Administered Source VFC Code: : Influenza, high-dose seasonal, quadrivalent, preservative free >65 yrs IM Intramuscular 05/03/2021 Administered ,sourcename : New immunization record ,immstatus : Complete Source VFC Code: : Influenza, high-dose seasonal, quadrivalent, preservative free >65 yrs IM Intramuscular 06/16/2023 Administered ,sourcename : New immunization record ,immstatus : Complete Influenza, high dose seasonal IM Intramuscular 06/14/2025 Administered Zoster Unknown 08/26/2011 Administered Source VFC Code: : Zoster IM Intramuscular 12/11/2022 Administered ,sourc ename : New immunization record ,immstatus : Complete Social History Tobacco Use: Social History Observation Description Date Details (start date - stop date) Never Smoker NA - NA Social History Household: Social Info Question Answer Notes Household Marital status: Tobacco Use: Social Info Question Answer Notes Tobacco Control (Standard) Tobacco use: Nonsmoker Additional Details Category Social Info Options Details Miscellaneous: Occupation: retired Problems Problem Type SNOMED Code ICD Code Onset Dates Problem Status W/U Status Risk Notes Problem Mammography abnormal (252120977) Abnormal mammogram of right breast (R92.8) Active confirmed Problem Hyperlipidemia (08213961) Hyperlipidemia, unspecified (E78.5) Active confirmed Problem Chronic diastolic heart failure (961009539) Chronic diastolic (congestive) heart failure (I50.32) Active confirmed Problem Postmenopausal bleeding (31076870) Postmenopausal bleeding (N95.0) Active confirmed Problem Obesity (853084435) Obesity, unspecified (E66.9) Active confirmed Problem Malignant neoplasm o f uterus (041818452) Malignant neoplasm of uterus, part unspecified (C55) Active confirmed Problem Hypomagnesemia (318964479) Hypomagnesemia (E83.42) Active confirmed Problem Sleep apnea (72886438) Sleep processor grain ea, unspecified (G47.30) Active confirmed Problem Prediabetes (587315279) Prediabetes (R73.03) Active confirmed Problem Pure hypercholesterolemia (300213192) Pure hypercholesterol emia, unspecified (E78.00) Active confirmed Problem Postmenopausal state (17081396) Asymptomatic menopausal state (Z78.0) Active confirmed Problem Screening for malignant neoplasm of breast (423688292) Encounter for other screening for malignant neoplasm of breast (Z12.39) Active confirmed Problem Hyperglycemia (48927651) Hyperglycemia, unspecified (R73.9) Active confirmed Problem Cervicalgia (58200708) Cervicalg ia (M54.2) Active confirmed Problem Instability of joint of right hand (finding) (18804489965927235) Other instability, 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) Active confirmed Problem Osteoarthritis of kn ee (939120420) Unilateral primary osteoarthritis, left knee (M17.12) Active confirmed Problem Callosity (518654117) Corns and callosities (L84) Active confirmed Problem Gastro-esophageal reflux disease without esophagitis (495554207) Gastro-esophagea l reflux disease without esophagitis (K21.9) Active confirmed Problem Peripheral vascular disease (866011820) Peripheral vascular disease, unspecified (I73.9) Active confirmed Problem Paroxysmal atrial fibrillation (627712555) Paroxysmal atrial fibrillation (I48.0) Active confirmed Problem Acute non-ST segment elevation myocardial infarction (950814093) Non-ST elevation (NSTEMI) myocardial infarction (I21.4) Active confirmed Problem Senile cataract (disorder) (72010842) Other age-related cataract (H25.89) Active confirmed Problem Polyneuropathy (18461261) Polyneuropathy, unspecified (G62.9) Active confirmed Problem Obstructive sleep apnea syndrome (disorder) (90672352) Obstructive sleep apnea (adult) (pediatric) (G47.33) Active confirmed sleep study done at [facility], read by Dr DAMICO Problem Anxiety disorder (132894776) Anxiety disorder, unspecified (F41.9) 024 Active confirmed Problem Morbid obesity (disorder) (482490268) Morbid (severe) obesity due to excess calories (E66.01) Active confirmed Problem Postprocedural state s (526729380) History of biliary duct stent placement (Z98.890) Active confirmed Problem Pulmonary hypertensi on (88577317) Pulmonary hypertension, unspecified (I27.20) Active confirmed Problem Problem, abnormal examination (90171474) Encounter for general adult medical examination with abnormal findings (Z00.01) Active confirmed Problem Pain of right knee region (finding) (341424702151985) Pain in right knee (M25.561) Active confirmed Problem Essential hypertensi on (80823062) Essential (primary) hypertension (I10) Active confirmed Problem Allergic rhinitis (34221555) Allergic rhinitis, unspecified (J30.9) Active confirmed Vital Signs Heart Rate 79 /min 06/22/2025 Temperature 97.2 degrees Fahrenheit 06/22/2025 Respiratory Rate 16 /min 06/14/2025 Blood pressure diastolic 76 mm Hg 06/22/2025 Oximetry 98 % 06/22/2025 Height-cm 161.29 cm 06/22/2025 Weight-kg 134.72 kg 06/14/2025 Height 63.50 in 06/22/2025 Blood pressure systolic 130 mm Hg 06/22/2025 Weight 297 lbs 06/14/2025 BMI 51.78 kg/m2 06/14/2025 Encounters Encounter Location Date Provider Diagnosis [address] [address] 12/16/2024 Cass Wei Encounter for subsequent annual wellness visit (AWV) in Medicare patient Z00.00 and No-show for appointment Z91.[address] [address] 06/14/2025 Cassher Wei Malignant neoplasm o f uterus, part unspecified C55 ; Wellness examination Z00.00 ; Paroxysmal atrial fibrillation I48.0 ; Morbid (severe) obesity due to excess calories E66.01 ; History of biliary duct stent placement Z98.890 ; Hyperlipidemia, unspecified E78.5 ; Essential (primary) hypertension I10 ; Anxiety disorder, unspecified F41.9 ; Sleep apnea, unspecified G47.30 ; Polyneuropathy, unspecified G62.9 ; Hyperglycemia, unspecified R73.9 ; Muscle cramps R25.2 ; Hypomagnesemia E83.42 ; Encounter for administration of vaccine Z23 ; Breast screening Z12.39 and Asymptomatic menopause Z78.[address] [address] 06/22/2025 Dr. Dulce Haywood Acute abdominal pain R10.9 and Malignant neoplasm of uterus, part unspecified C55 [address] [address] 07/10/2025 Dr. Mj Copeland [address] [address] 08/30/[address] [address] 11/24/[address] [address] 05/30/2025 Dr. Mj Copeland [address] [address] 07/07/2025 Dr. Mj Copeland Abnormal mammogram of right breast R92.8 Assessments Encounter Date Diagnosis (ICD Code) Assessment Notes Treatment Notes Treatment Clinical Notes Section Notes 06/22/2025 Acute abdominal pain (ICD-10 - R10.9) Acute gastrointestinal illness:- Acute gastrointestinal illness with vomiting, diarrhea, abdominal pain, and bloating. Possible mild colitis or self-limited gastrointestinal inflammation. Most symptoms resolved, today, still feeling bloated with a decreased appetite. Low suspicion for appendicitis or diverticulitis at this time.- Monitor symptoms. Maintain a bland diet (bread, rice, applesauce, toast, chicken noodle soup). Encourage oral hydration. No imaging indicated unless pain recurs or symptoms worsen. Advised to call after-hours number or seek emergency care if severe pain, persistent vomiting, or new symptoms develop. Uterine cancer (immunosuppression risk):- Ongoing uterine cancer treatment with increased risk for infection and complications during acute illness.- Monitor for fever and signs of infection. Advised to check temperature at home and report any fevers or concerning symptoms. Option to obtain blood work to assess for infection or immunosuppression discussed; patient elected to monitor symptoms for now. 07/07/2025 Abnormal mammogram of right breast (ICD-10 - R92.8) 06/22/2025 Malignant neoplasm of uterus, part unspecified (ICD-10 - C55) 06/14/2025 Wellness examination (ICD-10 - Z00.00) -Will get panel of labs today. Need mammogram and Dexa scan. She did Cologard in 2023. Will give high dose Flu shot today. Immunization record doesn't show 2nd Shingrix. Rest of labs are UTD. 12/16/2024 No-show for appointment (ICD-10 - Z91.199) 12/16/2024 Encounter for subsequent annual wellness visit (AWV) in Medicare patient (ICD-10 - Z00.00) AWV Instructions The patient's health risk assessment was reviewed during this visit. The patient's chart was reviewed and updated See scanned images from paperwork reviewed and completed today The following topics have been addressed/discussed at today's visit: All recommended screening services (as applicable) including infectious diseases, osteoporosis, diabetes and/or diabetes complications, glaucoma, cognitive impairment, hearing impairment, alcohol misuse, cancer screening Fall risk assessment Alcohol misuse Counseling (if applicable) Tobacco Cessation Counseling (if applicable) Immunizations Vital Signs End of Life Care Patient was provided with a written copy of the care plan from today's visit to include topics of Fall prevention, Nutrition, Physical activity, Tobacco-use cessation, Social engagement, Weight loss, Cognition. PHQ-9 was administered today. ____ Mins spent discussing with the patient. 06/14/2025 Malignant neoplasm of uterus, part unspecified (ICD-10 - C55) - Uterine cancer in remission, ongoing surveillance.- Patient compliant with follow-up and imaging.- Continue follow-up with oncology, including upcoming appointments on July 12, 2025 and August 01, 2025.- Scheduled CAT scan in June 2025. 06/14/2025 Paroxysmal atrial fibrillation (ICD-10 - I48.0) -Follows with cardiology -Continue metroprolol and Xarelto. 06/14/2025 Morbid (severe) obesity due to excess calories (ICD-10 - E66.01) -Continue to work on diet and exercise. 06/14/2025 History of biliary duct stent placement (ICD-10 - Z98.890) Bile duct stent placed in January 2025, and removed in March 2025. -Denies any concerns today, except for persistent metallic taste in mouth 06/14/2025 Hyperlipidemia, unspecified (ICD-10 - E78.5) -Will check lipid panel. Continue Ezetimibe 10mg daily 06/14/2025 Essential (primary) hypertension (ICD-10 - I10) -BP is controlled with HCTZ, losartan, and metoprolol. No changes today. 06/14/2025 Anxiety disorder, unspecified (ICD-10 - F41.9) -Anxiety controlled with esctalopram 5mg daily. She feels dose is working well. No changes at this time. 06/14/2025 Sleep apnea, unspecified (ICD-10 - G47.30) -Wears CPAP nightly. No concerns at this time. 06/14/2025 Polyneuropathy, unspecified (ICD-10 - G62.9) - Neuropathy in feet with increased cramping. -Continue gapapentin 06/14/2025 Hyperglycemia, unspecified (ICD-10 - R73.9) Hx of pre-diabetes. Will check A1C today 06/14/2025 Muscle cramps (ICD-10 - R25.2) - Muscle spasms and cramping, mainly in feet, possibly related to low magnesium and hydration status.- Ordered repeat magnesium and potassium levels.- Recommended increased hydration; suggested trial of water flavoring agents to improve water intake.- Advised regular stretching. 06/14/2025 Hypomagnesemia (ICD-10 - E83.42) -Hx of low magnesium -Continue Mag oxide 400mg daily -Will recheck level today. 06/14/2025 Encounter for administration of vaccine (ICD-10 - Z23) 06/14/2025 Breast screening (ICD-10 - Z12.39) 06/14/2025 Asymptomatic menopause (ICD-10 - Z78.0) Plan Of Treatment Pending Test Test Name Order Date Ultrasound : Breast, right 07/07/2025 Mammogram, right breast 07/07/2025 DEXA Hip and Spine 06/14/2025 Next Appt Details Provider Name:Dr. Mj smith, 06/15/2026 01:30:00 PM, [address] [place] [address], [place], [address], [phone] Insurance Providers Payer Name Payer Address Payer Phone Subscriber Number Group Number Insured Name Patient Relationship to Insured Coverage Start Date Coverage End Date [employer] Advantage Ppo [address] [place] [address] [id number] Arcelia raymundo Susan Self - patient is the insured 3 [employer] [address] [place] [address] [id number] Arcelia raymundo Susan Self - patient is the insured Medical (General) History Medical History History ICD Code Malignant neoplasm of uterus, part unspe cified C55 Morbid (severe) obesity due to excess ca lories E66.01 Obesity, unspecified E66.9 Hyperlipidemia, unspecified E78.5 Anxiety disorder, unspecified F41.9 Sleep apnea, unspecified G47.30 Obstructive sleep apnea (adult) (pediatr ic) G47.33 Polyneuropathy, unspecified G62.9 Other age-related cataract H25.89 Essential (primary) hypertension I10 Non-ST elevation (NSTEMI) myocardial inf arction I21.4 Paroxysmal atrial fibrillation I48.0 Chronic diastolic (congestive) heart lalo lure I50.32 Peripheral vascular disease, unspecified I73.9 Allergic rhinitis, unspecified J30.9 Gastro-esophageal reflux disease without esophagitis K21.9 Corns and callosities L84 Unilateral primary osteoarthritis, left knee M17.12 Other instability, right hand M25.341 Pain in right shoulder M25.511 Pain in right hip M25.551 Pain in right knee M25.561 Cervicalgia M54.2 Pain in right leg M79.604 Pain in unspecified foot M79.673 Pain in unspecified toe(s) M79.676 Postmenopausal bleeding N95.0 Hyperglycemia, unspecified R73.9 Encounter for general adult medical exam ination with abnormal findings Z00.01 Encounter for other screening for malign ant neoplasm of breast Z12.39 Pure hypercholesterolemia, unspecified E 78.00 Asymptomatic menopausal state Z78.0 Pulmonary hypertension, unspecified I27. 20 Prediabetes R73.03 Surgical History Surgery Date(Month/Year) Tubal ligation ,notes : 1979 _ Colonoscopy ,notes : 2019 _ Arthrocentesis 0 Arthroplasty, knee, condyle and plateau; medial AND lateral compartments with or without patella res ,notes : left 02/19/2019 Cholecystectomy 1 Knee arthroplasty ,notes : right - total knee 7
--- OUTSIDE RECORDS SUMMARY | 2025-07-12 14:04 | XMS_ITS | Clinical Summary ---
Author Organization [facility] Address [facility] [place] [address] Care Team Providers Care Perioperative Assistant Name Role Phone Rosa No MD Primary Care Provider Izzy Gomez MD Unavailable [phone] Allergies Active Allergy Reactions Criticality Noted Date Comments Aspirin Hives,Swelling High 08/12/2023 Azithromycin Rash Medium 05/04/2018 Clarithromycin Rash Medium 05/04/2018 Erythromycin Rash Medium 05/04/2018 Penicillins Rash Medium 05/04/2018 Feet swelling Pentazocine Rash Medium 05/04/2018 Sulfate Ion Rash Medium 05/04/2018 Medications ezetimibe (ZETIA) 10 mg tablet Take 1 tablet (10 mg total) by mouth every morning Active gabapentin (NEURONTIN) 300 mg capsule Take 1 capsule (300 mg total) by mouth nightly Active hydroCHLOROthia zide (HYDRODIURIL) 25 mg tablet Take 1 tablet (25 mg total) by mouth every morning Active lisinopriL (PRINIVIL,ZESTR IL) 20 mg tablet Take 1 tablet (20 mg total) by mouth 2 (two) times a day with breakfast and lunch Active nitroglycerin (NITROSTAT) 0.[address] 1 tablet (0.4 mg total) under the tongue every 5 (five) minutes as needed for chest pain Has never used 2 Active Xarelto 20 mg tablet Take 1 tablet (20 mg total) by mouth daily with dinner Active metoprolol XL (TOPROL-XL) 50 mg extended release tablet Take 1 tablet (50 mg total) by mouth every morning 4 Active ondansetron (ZOFRAN) 8 mg tabletIndicatio ns:Endometrial cancer Take 1 tablet (8 mg total) by mouth every 8 (eight) hours as needed for nausea or vomiting 30 tablet 3 4 Active escitalopram (LEXAPRO) 20 mg tablet Take 1 tablet (20 mg total) by mouth daily 4 Active magnesium oxide (MAG-OX) 400 mg (241.3 mg elemental magnesium) tabletIndicatio ns:hypomagnesem ia Take 1 tablet (400 mg total) by mouth daily 30 tablet 3 5 03/16/20 26 Active fluorometholone (FML) 0.1 % ophthalmic suspension 5 Active Active Problems Problem Noted Date Diagnosed Date 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 Endometrial cancer 09/01/2023 Cancer Staging:Clinical stage from 10/23/2023:FIGO Stage IIIC1(cT3a, cN1a(sn), cM0) - Signed by Daja Quiñones MD on 11/10/2023 Assessment & Plan (02/27/2024 9:32 PM CDT): Proceed with taxol/carboplatin cycle #5 at unchanged doses. Weekly labs. CT imaging after cycle #6. Referred to radiation oncology with plan for EBRT + vaginal brachytherapy after completing chemotherapy.. 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 MMR intact.S/p RATLH, BSO, SLND, rectal oversew. Here for cycle #2 taxol/carboplatin adjuvant chemotherapy+RT. Proceed with taxol/carboplatin at unchanged doses. Weekly labs. Referred to radiation oncology with plan for EBRT + vaginal brachytherapy. 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 S/p RATLH, BSO, SLND, rectal oversew. Doing well postop. Recommend adjuvant chemotherapy/RT +/- immunotherapy. Follow up in 3 weeks for vaginal cuff and final postop check. Instructions and precautions given. Hyperlipidemia 07/14/2023 Hypertension 07/14/2023 Morbid (severe) obesity due to excess calories 0 10/24/2022 NSTEMI (non-ST elevated myocardial infarction) 1 08/12/2021 Total knee replacement status, right 01/25/2022 Nonrheumatic mitral valve regurgitation 11/28/19 21 Venous insufficiency 11/27/2020 Paroxysmal atrial fibrillation 05/25/2018 Presbyesophagus 10/11/2013 Overview (07/14/2023): Date Onset: 10/11/2013 Vitamin D deficiency 10/11/2013 Overview (07/14/2023): Date Onset: 10/11/2013 Hepatic steatosis 10/07/2013 Overview (07/14/2023): Date Onset: 10/07/2013 Hernia, hiatal 09/14/2013 Overview (07/14/2023): Date Onset: 09/14/2013 Anxiety disorder 03/30/2013 Overview (07/14/2023): Date Onset: 03/30/2013 Osteoarthrosis 03/30/2013 Overview (07/14/2023): Date Onset: 03/30/2013 Gastro-esophageal reflux disease without esophag itis 08/13/2011 Resolved Problems Problem Noted Date Diagnosed Date Resolved Date Thickened endometrium 07/22/20232023 Encounters Date Type Department Care Team Description 07/12/2025 11:20 AM TERMINOLOGIST Office Visit [facility] Advanced Medicine Radiation Oncology [address] [place] [address] Trini Denny PA Endometrial cancer 07/12/2025 9:08 AM TERMINOLOGIST Hospital Encounter [facility] [address] [place] [address] Endometrial cancer from Last 3 Months Immunizations Immunization Administration Dates Next Due Influenza, Quad, Adjuvantated, Intramuscular 08/2021,06/01/2020 Influenza, Quadrivalent, [place] h Dose, Preservative Free, Intrr 06/16/2023 Influenza, Trivalent, High D ose, Split, Preservative Free, Intramuscular 05/07/2019,05/04/2018 Influenza, Trivalent, Preservative Free, Intramu scular 06/11/2013 Pneumococcal Conjugate PCV 13 09/04/2017 Pneumococcal Polysaccharide PPV23 02/19/2019 RSV Vaccine, Pref, Recombina nt, Subunit, Adjuvanted, PF, IM (Arexvy) 06/16/2023 Tdap 11/01/2022 ZOSTER LIVE 08/26/2011 ZOSTER Recombinant 12/11/2022 Surgical History Surgery Date Site/Laterality Comments CHOLECYSTECTOMY 12-15 years ago REPLACEMENT TOTAL KNEE Bilateral 2017 and 2021 CATARACT EXTRACTION 01/25/2023 - 02/24/2023 Bilateral COLONOSCOPY CARDIAC CATHETERIZATION 07/28/2022 - 07/27/2023 UPPER GASTROINTESTINAL ENDOSCOPY PORT PLACEMENT CHEST >5 YEARS 12/03/2023 N/A Medical History Medical History Date Comments Hypertension Hyperlipidemia Delayed emergence from general anesthesia Sleep apnea Family History Medical History Relation Name Comments Breast cancer Daughter Heart attack Father Breast cancer Mother Anesthesia problems Neg Hx Relation Name Status Comments Daughter Alive Father Mother Alive Sister Alive Social History Tobacco Use Types Packs/Day Years Used Date Smoking Tobacco: Never Smokeless Tobacco: Never Tobacco Cessation:Counseling Given: Not Answered Alcohol Use Standard Drinks/Week Comments Never 0 [...] on file Legal Sex Female 6:09 PM TERMINOLOGIST Gender Identity Not on file Sexual Orientation Not on file Obstetrics History Para Term AB IAB SAB Ectopic Multiple Livin g Live Births 2 2 2 0 0 0 0 0 0 2 2 Date Outcome GA Total Labor Labor/2nd/3rd Weight Sex Type Anes PTL Yaneth A1 A5 Name Clin Term Term Last Filed Vital Signs Vital Sign Reading Time Taken Comments Blood Pressure 117/83 04/07/2025 10:35 AM CDT Pulse 56 04/07/2025 10:35 AM CDT Temperature 36.2 C (97.2 F) 04/07/2025 9:35 AM CDT Respiratory Rate 21 04/07/2025 10:3 5 AM CDT Oxygen Saturation 96% 04/07/2025 10: 35 AM CDT Inhaled Oxygen Concentration - - Weight 131.8 kg (290 lb 9.6 oz) 025 10:26 AM TERMINOLOGIST Height 165.1 cm (5' 5) 07/12/2025 10:2 6 AM TERMINOLOGIST Body Mass Index 48.36 07/12/2025 10:26 AM TERMINOLOGIST Plan of Treatment Health Maintenance Due Date Last Done Comments Colon Cancer Screening-Colonoscopy 1950 Depression Screening 1950 Hepatitis C Screening 1950 Hepatitis B Screening 12/24/1967 Well Visit 65+ 2014 Covid-19 Vaccine (2 - Jansse n risk series) 11/06/2020 10/09/2020 Zoster Vaccine (2 of 2) 02/05/2023 12/11/2022, 08/26 Osteoporosis Screening-Bone Density Scan 01/13/2025 01/13/2023 Influenza Vaccine (#1) 2025 3, 06/28/2022, 06/01/2020, Additional history exists Fall Risk Assessment 04/07/2026 04/07/2025, 12/23/19 24 DTaP/Tdap/Td Vaccine (2 - Td or Tdap) 11/01/2032 11/01/2022 Pneumococcal vaccine 65+ Completed 02/19/2019, 02/2018 Breast Cancer Screening-Mammogram Discontinued 07/05/2025, 07/05/2025, 01/16/2024, Additional history exists Medical Devices Implanted Type Area Machine Made Shoe Unit Worker Device Identifier Shelf Expiration Date Model / Serial / Lot [employer] Xcela Power Port 8fr [id number] - [id number] Implanted:Qty: 1 on 12/03/2023 at [facility] Ang[employer] 08/16/2028 [id number] / / [id number] Explanted Type Area Machine Made Shoe Unit Worker Device Identifier Shelf Expiration Date Model / Serial / Lot Conmed Sg Viabil 10mm X 6cm Shortwire [id number] - [id number] - [id number] Implanted:Qty: 1 on 12/30/2024 by Daniel Smith MD at [facility] Explanted:Qty: 1 on 04/07/2025 by Bonilla Ayala MD at [facility] Stent N/A: Bile Duct Conmed Sg 09/16/2027 [id number] / [id number] / [employer] Sg 10fr 7cm Biliary Stent [id number] - [id number] Implanted:Qty: 1 on 12/01/2024 by Daniel Smith MD at [facility] Explanted:Qty: 1 on 12/30/2024 at [facility] Bile Duct [employer] Sg 09/01/2026 [id number] / / [id number] Procedures Procedure Name Priority Date/Time Associated Diagnosis Comments CT CHEST ABDOMEN PELVIS W CONTRAST Schedule Routine, Read Routine (OP Routine) 07/12/2025 10:17 AM TERMINOLOGIST Endometrial cancer from Last 3 Months Results * CT Chest Abdomen Pelvis W Contrast (07/12/2025 10:17 AM TERMINOLOGIST) Anatomical Region Laterality Modality Body N/A Computed Tomogra phy 07/12/2025 11:2 7 AM TERMINOLOGIST Impressions 07/12/2025 12:53 PM TERMINOLOGIST 1. Findings suggestive of appendicitis with likely [...] Ari Walters M.D. Narrative 07/12/2025 12:53 PM TERMINOLOGIST EXAMINATION: Computed tomography of the chest, abdomen [...] by: Ari Walters M.D. Daja Quiñones MD IMG CT PROCEDURES Final Result from Last 3 Months Insurance [facility] MEDICARE [facility] MEDICARE Advance Directives For more information, please contact: [phone] * Full Code (Latest Code Status on File) Date Activated Date Inactivated Comments 04/07/2025 7:39 AM 04/07/2025 3:01 PM * Full Code Date Activated Date Inactivated Comments 12/30/2024 7:01 AM 12/30/2024 1:47 PM * Full Code Date Activated Date Inactivated Comments 12/01/2024 9:05 AM 12/01/2024 4:32 PM * Full Code Date Activated Date Inactivated Comments 12/03/2023 12:52 PM 12/04/2023 5:31 AM Care Teams Perioperative Assistant Relationship Specialty Start Date End Date Rosa No MD [address] [place] [address] PCP - General Family Medicine 12/09/23 Izzy Gomez MD [address] [facility] [place] [address] Radiation Oncologist Radiation Oncology 12/23/23
--- OUTSIDE RECORDS SUMMARY | 2025-07-12 14:05 | XMS_ITS ---
Author Organization [facility] Address [address] [place] [address] Care Team Providers Care Nuclear Station Operator Name Role Phone Rosa No MD Primary Care Provider Izzy Gomez MD Unavailable [phone] Active Problems Problem Noted Date Diagnosed Date [...] Gastro-esophageal reflux disease without esophag itis 08/13/2011 Current Treatment and Therapy Plans IV Maintenance Therapy Plan* Plan Start Date:12/09/2023 Plan Provider:Daja Quiñones MD Linked Problems Endometrial cancer Treatment Medications No medications scheduled. Other Current Plans Electrolyte Replacement* Plan Start Date:02/27/2024 Plan Provider:Daja Quiñones MD Linked Problems Hypomagnesemia Treatment Medications No medications scheduled. Past Treatment and Therapy Plans Oncology Chemotherapy Treatment Plan Name Start Date Discontinue Date Treatment Medications Discontinue Reason Plan Provider Cycles PACLItaxel / CARBOplatin (AUC 5) 21 Day Cycles - AND RESCUE FIRE FIGHTER CRASH FIRE 12/03/2023 05/26/2024 CARBOplatin (PARAPLATIN) IVPB in 250 mL (by AUC: GOG)PACLItaxel (TAXOL) IVPB in 500 mL Therapy Complete Daja Quiñones MD 6 of 6 cycles started Radiation Treatments * Course [id number] - 06/02/2024 Treatment Period Energy Fraction Dose Fractions Total Dose Plans Planned WHOLE PELVIS 04/22/2024 - 06/02/2024 180 28 / 5,040 Reference Points Delivered WHOLE PELVIS 04/22/2024 - 06/02/2024 5,040 Lifetime Dose Tracking * Chemical Lifetime Dose Automatic Entry Manual Entr y Fluoro Time 14.6 minutes 14.6 minutes 0 minutes Air kerma at the reference point (Ka,r) 829 mGy 8 29 mGy 0 mGy DLP 10,650 mGycm 10,650 mGycm 0 mGycm Resolved Problems Problem Noted Date Diagnosed Date Resolved Date Thickened endometrium 07/22/20232023
--- NOTE | 2025-07-12 15:23 | ED_ITS ---
HPI - Abdominal Pain General Chief Complaint: Abdominal Pain <Linda Mascorro PA-C - Last Filed: 07/12/25 17:30> Stated Complaint: R/o appendicitis <Linda Mascorro PA-C - Last Filed: 07/12/25 17:30> Time Seen by Provider: 07/12/25 15:12 <Linda Mascorro PA-C - Last Filed: 07/12/25 17:30> Source: patient <Linda Mascorro PA-C - Last Filed: 07/12/25 17:30> Mode of arrival: ambulatory <Linda Mascorro PA-C - Last Filed: 07/12/25 17:30> Limitations: no limitations <Linda Mascorro PA-C - Last Filed: 07/12/25 17:30> History of Present Illness HPI narrative: This is a 74-year-old female that presents emergency department for right lower quadrant abdominal pain. Ongoing over the last couple of weeks. Reports some vomiting and diarrhea. Denies fevers. <Linda Mascorro PA-C - Last Filed: 07/12/25 17:30> Related Data Allergies/Adverse Reactions: Allergies Allergy/AdvReac Type Severity Reaction Status Date / Time aspirin Allergy Severe HIVES Verified 07/12/25 18:37 sulfamethoxazole Allergy Intermediate RASH Verified 07/12/25 18:37 trimethoprim Allergy Intermediate RASH Verified 07/12/25 18:37 Iodinated Contrast Media Allergy Mild Vomiting Verified 07/12/25 18:37 NSAIDS (Non-Steroidal Allergy Unknown HIVES Verified 07/12/25 18:37 Anti-Inflamma Penicillins Allergy Unknown HIVES Verified 07/12/25 18:37 PROPOXYPHENE HCL Allergy Intermediate RASH Uncoded 06/19/10 12:58 <Linda Mascorro PA-C - Last Filed: 07/12/25 17:30> Review of Systems 2 Review of Systems: All systems reviewed & are unremarkable except as noted in HPI and below <Linda Mascorro PA-C - Last Filed: 07/12/25 17:30> PMFSH Past Medical History Medical History: Medical History (Updated 07/12/25 @ 17:30 by Linda Mascorro PA-C) Atrial fibrillation Hypertension <Linda Mascorro PA-C - Last Filed: 07/12/25 17:30> Surgical History Surgical History: Surgical History (Updated 07/12/25 @ 15:24 by Linda Mascorro PA-C) History of hysterectomy History of cholecystectomy <Linda Mascorro PA-C - Last Filed: 07/12/25 17:30> Family History Family History: Family History Father Hypertension Mother Hypertension Family history of malignant neoplasm of breast in first degree relative Sibling Hypertension <Linda Mascorro PA-C - Last Filed: 07/12/25 17:30> Social History Social History: Social History Smoking status: Never smoker Alcohol intake: never Substance use: never Lack of Transportation: No Lack of Food: Never True Current Housing: I Have Housing Concerned About Future Housing: No Difficulty Paying Gas/Electric Bills: No Difficulty Paying for Meds: No Currently Unemployed: No Education: High School Diploma/GED Difficulty w/ Childcare or Family Care: No Spiritual care concerns: No <Linda Mascorro PA-C - Last Filed: 07/12/25 17:30> Exam 2 Narrative: GENERAL: Well-appearing, well-nourished, and in no acute distress. HEAD: Normocephalic, atraumatic. EYES: EOMI. CHEST: Clear to auscultation. No respiratory distress. No wheezes rales or rhonchi HEART: Regular rate and rhythm. No murmur heard. Normal peripheral pulses. ABDOMEN: Soft, nondistended, normal active bowel sounds. Mild tenderness to palpation the right lower quadrant, without guarding EXTREMITIES: Normal range of motion. No edema. SKIN: Warm, dry, no rash. NEURO: No focal deficits. Alert and oriented x3. PSYCH: Normal mood and affect <Linda Mascorro PA-C - Last Filed: 07/12/25 17:30> Course ORIENTATION AND MOBILITY INSTRUCTOR/PA Physician Supervision This visit was performed by both a physician and an APC; I performed all aspects of the medical decision making component of this evaluation as documented. Patient with outpatient imaging showing ruptured appendicitis, IR will be in house today and tomorrow, antibiotics will be started and case discussed with surgery and hospitalist for admission. <Janice Ellis MD - Last Filed: 07/12/25 18:51> Consultations Surgery: I have discussed the care of this patient with the following provider: Dr. Grewal <Linda Mascorro PA-C - Last Filed: 07/12/25 17:30> Vital Signs Vital signs: Vital Signs Temperature 98.8 F 07/12/25 11:55 Pulse Rate 64 07/12/25 11:55 Respiratory Rate 14 07/12/25 11:55 Blood Pressure 123/82 07/12/25 11:55 Pulse Oximetry 96 07/12/25 11:55 Oxygen Delivery Room Air 07/12/25 11:55 Temperature 97.6 F 07/12/25 17:08 Pulse Rate 62 07/12/25 17:08 Respiratory Rate 16 07/12/25 17:08 Blood Pressure 131/81 07/12/25 17:08 Pulse Oximetry 95 07/12/25 17:08 Oxygen Delivery Room Air 07/12/25 11:55 <Linda Mascorro PA-C - Last Filed: 07/12/25 17:30> Vital Signs Temperature 98.8 F 07/12/25 11:55 Pulse Rate 64 07/12/25 11:55 Respiratory Rate 14 07/12/25 11:55 Blood Pressure 123/82 07/12/25 11:55 Pulse Oximetry 96 07/12/25 11:55 Oxygen Delivery Room Air 07/12/25 11:55 Temperature 97.6 F 07/12/25 17:08 Pulse Rate 62 07/12/25 17:08 Respiratory Rate 16 07/12/25 17:08 Blood Pressure 131/81 07/12/25 17:08 Pulse Oximetry 95 07/12/25 17:08 Oxygen Delivery Room Air 07/12/25 11:55 <Janice Ellis MD - Last Filed: 07/12/25 18:51> [facility] MDM Narrative Medical decision making narrative: Patient presents emergency department with an outpatient CT scan showing appendicitis with abscess. She is afebrile and nontoxic appearing. Her vitals are stable. CBC without leukocytosis. Metabolic panel without concerning findings. CT abdomen and pelvis here showing 2.9 cm complex fluid accumulation in the expected location of the appendix which may represent ruptured appendicitis and developing abscess. Possible early diverticulitis. Blood cultures obtained, patient started on IV antibiotics. Surgery will consult. Patient admitted to the hospitalist service <Linda Mascorro PA-C - Last Filed: 07/12/25 17:30> Differential Diagnosis Differential Diagnosis: Appendicitis, intra-abdominal abscess <SALLY Granger Last Filed: 07/12/25 17:30> Medical Records I have reviewed the following patient records and this information was taken into consideration when formulating the assessment and plan.: previous clinic visits <SALLY Granger Last Filed: 07/12/25 17:30> Lab Data MDM Lab Attestation statement: I personally reviewed the patient's lab results. <Linda Mascorro PA-C - Last Filed: 07/12/25 17:30> Result diagrams: 07/12/25 12:19 07/12/25 12:19 <SALLY Granger Last Filed: 07/12/25 17:30> Labs: Lab Results 07/12/25 07/12/25 Range/Units 12:19 15:47 WBC 6.8 (4.5-10.0) K/mm3 RBC 3.47 L (4.2-5.4) M/mm3 Hgb 11.3 L (12.0-15.0) g/dL Hct 34.3 L (37.0-47.0) % MCV 98.8 (80-100) fl MCH 32.6 (26-34) pg MCHC 32.9 (32-36) g/dl RDW 13.2 (11.5-14.5) % Plt Count 269 (150-375) k/mm3 MPV 9.6 (7.4-10.4) fl Immature Gran % (Auto) 0.6 H (0-0.5) % Neut % (Auto) 74.9 H (45.5-73.1) % Lymph % (Auto) 14.3 L (18.3-44.2) % Centre % (Auto) 8.8 H (2.6-8.5) % Eos % (Auto) 1.0 (0-4.4) % Baso % (Auto) 0.4 (0.2-1.2) % Lymph # (Auto) 0.97 (0.9-3.2) K/mm3 Centre # (Auto) 0.6 (0.1-0.6) K/mm3 Eos # (Auto) 0.1 (0-0.3) K/mm3 Baso # (Auto) 0.0 (0.0-0.1) K/mm3 Abs Immat Gran (auto) 0.04 H (0.00-0.031) K/mm3 Absolute Neuts (auto) 5.1 (1.3-6.7) K/mm3 Absolute Nucleated RBC 0.000 (0.0-0.012) K/mm3 Nucleated RBC % 0.0 (0.0-0.2) % PT 16.0 H (11.1-14.7) Seconds INR 1.3 APTT 31.7 (22.3-36.8) Seconds Sodium 138 (137-145) mmol/L Potassium 4.2 (3.4-5.0) mmol/L Chloride 102 (98-107) mmol/L Carbon Dioxide 28 (22-30) mmol/L Anion Gap 8 (4-12) mmol/L BUN 15 (7-17) mg/dL Creatinine 0.82 (0.7-1.0) mg/dL Estim Creat Clear Calc 69 ml/min Estimated GFR > 60 (59 - ) Glucose 109 (65-110) mg/dL Lactic Acid 1.9 (0.7-2.0) mmol/L Calcium 9.2 (8.4-10.2) mg/dL Total Bilirubin 0.7 (0.2-1.3) mg/dL AST 22 (14-36) U/L ALT 15 (6-35) U/L Alkaline Phosphatase 129 H (38-126) U/L Total Protein 7.1 (6.3-8.2) g/dL Albumin 3.9 (3.5-5.1) g/dL Lipase 334 H (23-300) U/L Urine Color Yellow (Yellow) Urine Appearance Clear (Clear) Urine pH 6.0 (5.0-9.0) Ur Specific [place] > 1.045 H (1.001-1.035) Urine Protein Negative (Negative) mg/dL Urine Glucose (UA) Negative (Negative) mg/dL Urine Ketones Negative (Negative) mg/dL Ur Blood (Man) Negative (Negative) Urine Nitrate Negative (Negative) Urine Bilirubin Negative (Negative) Urine Urobilinogen 0.2 (<2.0) mg/dL Leukocyte Esterase Rfl Negative (Negative) MAIDA/UL <Linda Mascorro PA-C - Last Filed: 07/12/25 17:30> Lab Results 07/12/25 07/12/25 Range/Units 12:19 15:47 WBC 6.8 (4.5-10.0) K/mm3 RBC 3.47 L (4.2-5.4) M/mm3 Hgb 11.3 L (12.0-15.0) g/dL Hct 34.3 L (37.0-47.0) % MCV 98.8 (80-100) fl MCH 32.6 (26-34) pg MCHC 32.9 (32-36) g/dl RDW 13.2 (11.5-14.5) % Plt Count 269 (150-375) k/mm3 MPV 9.6 (7.4-10.4) fl Immature Gran % (Auto) 0.6 H (0-0.5) % Neut % (Auto) 74.9 H (45.5-73.1) % Lymph % (Auto) 14.3 L (18.3-44.2) % Centre % (Auto) 8.8 H (2.6-8.5) % Eos % (Auto) 1.0 (0-4.4) % Baso % (Auto) 0.4 (0.2-1.2) % Lymph # (Auto) 0.97 (0.9-3.2) K/mm3 Centre # (Auto) 0.6 (0.1-0.6) K/mm3 Eos # (Auto) 0.1 (0-0.3) K/mm3 Baso # (Auto) 0.0 (0.0-0.1) K/mm3 Abs Immat Gran (auto) 0.04 H (0.00-0.031) K/mm3 Absolute Neuts (auto) 5.1 (1.3-6.7) K/mm3 Absolute Nucleated RBC 0.000 (0.0-0.012) K/mm3 Nucleated RBC % 0.0 (0.0-0.2) % PT 16.0 H (11.1-14.7) Seconds INR 1.3 APTT 31.7 (22.3-36.8) Seconds Sodium 138 (137-145) mmol/L Potassium 4.2 (3.4-5.0) mmol/L Chloride 102 (98-107) mmol/L Carbon Dioxide 28 (22-30) mmol/L Anion Gap 8 (4-12) mmol/L BUN 15 (7-17) mg/dL Creatinine 0.82 (0.7-1.0) mg/dL Estim Creat Clear Calc 69 ml/min Estimated GFR > 60 (59 - ) Glucose 109 (65-110) mg/dL Lactic Acid 1.9 (0.7-2.0) mmol/L Calcium 9.2 (8.4-10.2) mg/dL Total Bilirubin 0.7 (0.2-1.3) mg/dL AST 22 (14-36) U/L ALT 15 (6-35) U/L Alkaline Phosphatase 129 H (38-126) U/L Total Protein 7.1 (6.3-8.2) g/dL Albumin 3.9 (3.5-5.1) g/dL Lipase 334 H (23-300) U/L Urine Color Yellow (Yellow) Urine Appearance Clear (Clear) Urine pH 6.0 (5.0-9.0) Ur Specific [place] > 1.045 H (1.001-1.035) Urine Protein Negative (Negative) mg/dL Urine Glucose (UA) Negative (Negative) mg/dL Urine Ketones Negative (Negative) mg/dL Ur Blood (Man) Negative (Negative) Urine Nitrate Negative (Negative) Urine Bilirubin Negative (Negative) Urine Urobilinogen 0.2 (<2.0) mg/dL Leukocyte Esterase Rfl Negative (Negative) MAIDA/UL <Janice Ellis MD - Last Filed: 07/12/25 18:51> Imaging Data Radiologist's impression: ITS Impressions Abdomen/Pelvis CT 07/12/25 13:07 IMPRESSION: 1. A 2.9 cm complex fluid accumulation in the expected location of the appendix may represent ruptured appendix and developing abscess. 2. Minimal pericolonic strandy changes about the proximal sigmoid colon with diverticuli are noted; very early or mild diverticulitis in this area is not excluded. <Linda Mascorro PA-C - Last Filed: 07/12/25 17:30> ITS Impressions Abdomen/Pelvis CT 07/12/25 13:07 IMPRESSION: 1. A 2.9 cm complex fluid accumulation in the expected location of the appendix may represent ruptured appendix and developing abscess. 2. Minimal pericolonic strandy changes about the proximal sigmoid colon with diverticuli are noted; very early or mild diverticulitis in this area is not excluded. <Janice Ellis MD - Last Filed: 07/12/25 18:51> Critical Care Time Critical Care Time Critical Care Time: No <Linda Mascorro PA-C - Last Filed: 07/12/25 17:30> Discharge Plan Discharge Clinical Impression: Appendiceal abscess <Linda Mascorro PA-C - Last Filed: 07/12/25 17:30> Patient Disposition: Still a Patient <Linda Mascorro PA-C - Last Filed: 07/12/25 17:30> Condition: Stable <Linda Mascorro PA-C - Last Filed: 07/12/25 17:30>
[2025-07-12] MEDS: cefTRIAXone 1 GM in SODIUM CHLORIDE 0.9% IV 50 ML 100 ML IVPB (15:49)
[2025-07-12 16:05] LABS: INR 1.3; Partial Thromboplastin Time 31.7 Seconds (22.3-36.8); Prothrombin Time 16.0 Seconds (11.1-14.7)
[2025-07-12] MEDS: metroNIDAZOLE 500 MG/ISO 100ML 500 MG/100 ML BAG 100 MG IVPB ×2 (16:18→22:39)
--- NOTE | 2025-07-12 16:34 | PM.CNGS ---
Assessment and Plan Assessment and plan (1) Appendiceal abscess: Code(s): K35.33 - Acute appendicitis with perforation, localized peritonitis, and gangrene, with abscess Status: Acute Assessment and Plan: Patient presented to the hospital today after outpatient CT demonstrated appendicitis with appendiceal abscess. Patient states that she has been having right lower quadrant pain intermittently for the past month and a half. upon admission to [facility], CT again demonstrated 2.9 cm complex fluid accumulation in the expected location of the appendix. This likely represents ruptured appendicitis with developing abscess. Patient denies any current abdominal pain. Her white blood cell count is normal and she is afebrile. Patient will be admitted to the hospitalist service. We recommend conservative treatment with IV antibiotics. We will continue to monitor with serial abdominal exams and labs. Abscess is 2.9 cm, too small to warrant placement of percutaneous drain. (2) History of endometrial cancer: Code(s): Z85.42 - Personal history of malignant neoplasm of other parts of uterus Status: Acute Plan Discussed patient's case and plan of care with Dr. Grewal. History of Present Illness Consult details Consult date: 07/12/25 Reason for consult: other (appendicitis) Requesting physician: Linda Mascorro PA-C Narrative: Patient is a 74-year-old female with history of AFib (on Xarelto), hypertension, endometrial cancer (in remission; status post chemo, radiation, and hysterectomy 2 years ago) Who we have been asked to see in surgical consultation for appendicitis. Patient states that she has been having right lower quadrant pain for the past month and a half. She notes associated nausea / vomiting and diarrhea. She takes daily Tylenol for chronic headaches but denies any other pain medications. She states that she usually just sits down and lets the pain past when it occurs. She has changed her diet to mostly bland foods. Patient is currently in remission for endometrial cancer and was seen today at [facility] for routine scheduled CT. She was then called and told to present to an emergency department after this CT demonstrated appendiceal abscess. Patient presented to [facility] this afternoon in labs revealed a normal white blood cell count with very mild left shift. Patient is afebrile. CT scan was obtained and demonstrated a 2.9 cm complex fluid accumulation in expected location of the appendix which may represent ruptured appendix and developing abscess. General surgery team consulted at this time. Upon my interview, patient denies any current abdominal pain. She states that the pain occurs almost daily but that it is mild and tolerable. She has continued to have diarrhea, with her last bowel movement this morning. Her previous abdominal surgeries include hysterectomy and cholecystectomy. FOR[facility]LY [facility] Past Medical History Medical History (Updated 07/12/25 @ 16:43 by Radha Rodriguez PA-C) Atrial fibrillation Hypertension Surgical History Surgical History (Updated 07/12/25 @ 15:24 by Linda Mascorro PA-C) History of hysterectomy History of cholecystectomy Family History Family History (Updated 02/23/16 @ 23:19 by DOCTOR UNKNOWN) Father Hypertension Mother Hypertension Family history of malignant neoplasm of breast in first degree relative Sibling Hypertension Social History Social History Alcohol intake: never Meds Home Medications and Allergies Allergies Allergy/AdvReac Type Severity Reaction Status Date / Time aspirin Allergy Severe HIVES Verified 07/12/25 11:59 sulfamethoxazole Allergy Intermediate RASH Verified 07/12/25 11:59 trimethoprim Allergy Intermediate RASH Verified 07/12/25 11:59 Iodinated Contrast Media Allergy Mild Vomiting Verified 07/12/25 11:59 NSAIDS (Non-Steroidal Allergy Unknown HIVES Verified 07/12/25 11:59 Anti-Inflamma Penicillins Allergy Unknown HIVES Verified 07/12/25 11:59 PROPOXYPHENE HCL Allergy Intermediate RASH Uncoded 06/19/10 12:58 Vital Signs Vital Signs - 24 hr 07/12/25 11:55 Temperature 98.8 F Pulse Rate 64 Respiratory Rate 14 Blood Pressure 123/82 Pulse Oximetry 96 Oxygen Delivery Room Air Exam Const: General: comfortable and no acute distress Eyes: General: appearance normal, both eyes and all related structures Neck: Neck: supple and no JVD Resp: Effort & Inspection: normal respiratory effort Cardio: Rate: regular rate GI: Inspection: non-distended, Pannus present and obesity GI Palp: Yes Soft to palpation, No Tenderness to palpation present (GI) and No Guarding due to palpation present (GI) Auscultation: normal bowel sounds Rectal Exam: deferred Skin: General skin exam: normal color and no rashes or lesions noted Neuro: Sensory Exam: normal sensation Extrem: General: normal to inspection Psych: Mental Status: mental status grossly normal Results Labs 07/12/25 12:19 07/12/25 12:19 Labs: Abnormal lab results 07/12/25 07/12/25 Range/Units 12: 15:47 RBC 3.47 L (4.2-5.4) M/mm3 Hgb 11.3 L (12.0-15.0) g/dL Hct 34.3 L (37.0-47.0) % Immature Gran % (Auto) 0.6 H (0-0.5) % Neut % (Auto) 74.9 H (45.5-73.1) % Lymph % (Auto) 14.3 L (18.3-44.2) % [place] % (Auto) 8.8 H (2.6-8.5) % Abs Immat Gran (auto) 0.04 H (0.00-0.031) K/mm3 PT 16.0 H (11.1-14.7) Seconds Alkaline Phosphatase 129 H (38-126) U/L Lipase 334 H (23-300) U/L Ur Specific [place] > 1.045 H (1.001-1.035) Diabetes panel 07/12/25 Range/Units 12: Sodium 138 (137-145) mmol/L Potassium 4.2 (3.4-5.0) mmol/L Chloride 102 (98-107) mmol/L Carbon Dioxide 28 (22-30) mmol/L BUN 15 (7-17) mg/dL Creatinine 0.82 (0.7-1.0) mg/dL Glucose 109 (65-110) mg/dL Calcium 9.2 (8.4-10.2) mg/dL AST 22 (14-36) U/L ALT 15 (6-35) U/L Alkaline Phosphatase 129 H (38-126) U/L Total Protein 7.1 (6.3-8.2) g/dL Albumin 3.9 (3.5-5.1) g/dL Calcium panel 07/12/25 Range/Units 12:19 Calcium 9.2 (8.4-10.2) mg/dL Albumin 3.9 (3.5-5.1) g/dL Pituitary panel 07/12/25 Range/Units 12:19 Sodium 138 (137-145) mmol/L Potassium 4.2 (3.4-5.0) mmol/L Chloride 102 (98-107) mmol/L Carbon Dioxide 28 (22-30) mmol/L BUN 15 (7-17) mg/dL Creatinine 0.82 (0.7-1.0) mg/dL Glucose 109 (65-110) mg/dL Calcium 9.2 (8.4-10.2) mg/dL Adrenal panel 07/12/25 Range/Units 12:19 Sodium 138 (137-145) mmol/L Potassium 4.2 (3.4-5.0) mmol/L Chloride 102 (98-107) mmol/L Carbon Dioxide 28 (22-30) mmol/L BUN 15 (7-17) mg/dL Creatinine 0.82 (0.7-1.0) mg/dL Glucose 109 (65-110) mg/dL Calcium 9.2 (8.4-10.2) mg/dL Total Bilirubin 0.7 (0.2-1.3) mg/dL AST 22 (14-36) U/L ALT 15 (6-35) U/L Alkaline Phosphatase 129 H (38-126) U/L Total Protein 7.1 (6.3-8.2) g/dL Albumin 3.9 (3.5-5.1) g/dL All other labs normal.
[2025-07-12 17:08] VITALS: BP 131/81; PULSE 62; RESP 16; TEMP 36.4; O2SAT 95
--- NOTE | 2025-07-12 17:24 | WPCEDHO ---
ED Hand Off Checklist All vitals saved:y IV Site documented:y All med administrations documented:y Triage Note Triage Note Pt. ambulatory to ED for RLQ abd. 07/12/25 15:12 pain x2-3 weeks with N/V/D. Pain radiates to her R. lower back. Pt. is in remission for uterine cancer. Had a CT scan this morning at [facility]. Afterward, she received a phone call stating the CT scan showed concern for a ruptured appendix and she needed to go to the ER. No pain while in triage. Pt. states her pain is intermittent. Allergies aspirin Allergy (Severe, Verified 07/12/25 11:59) HIVES sulfamethoxazole Allergy (Intermediate, Verified 07/12/25 11:59) RASH trimethoprim Allergy (Intermediate, Verified 07/12/25 11:59) RASH Iodinated Contrast Media Allergy (Mild, Verified 07/12/25 11:59) Vomiting nausea and hands and face get red NSAIDS (Non-Steroidal Anti-Inflamma Allergy (Unknown, Verified 07/12/25 11:59) HIVES NSAIDS PER UNCODED ALLERGIES 12/13/04 Penicillins Allergy (Unknown, Verified 07/12/25 11:59) HIVES PENICILLIN PER UNCODED ALLERGIES 12/13/04 PROPOXYPHENE HCL Allergy (Intermediate, Uncoded 06/19/10 12:58) RASH Current Diagnoses Acute appendicitis with perforation, localized peritonitis, and gangrene, with abscess (07/12/25) Personal history of malignant neoplasm of other parts of uterus (07/12/25) Family History Father Hypertension Mother Hypertension Family history of malignant neoplasm of breast in first degree relative Sibling Hypertension Administered/Completed Medications Discontinued Medications Ceftriaxone Sodium 1 gm/ (Sodium Chloride) 50 mls @ 100 mls/hr IVPB ONCE STA Stop: 07/12/25 15:42 Last Infusion: 07/12/25 16:18 Dose: Infused Documented By: Admin: 07/12/25 15:49 Dose: 100 mls/hr Documented By: CYNDI Metronidazole (Flagyl 500 Mg/Iso Soln 100 Ml) 500 mg in 100 mls @ 100 mls/hr IVPB ONCE STA Stop: 07/12/25 16:12 Last Infusion: 07/12/25 17:12 Dose: Infused Documented By: Admin: 07/12/25 16:18 Dose: 100 mls/hr Documented By: ELB Interventions/Assessments IV / Saline Lock, Insert Start: 07/12/25 11:44 Freq: Status: Active Protocol: Document 07/12/25 15:49 ELB (Rec: 07/12/25 15:49 ELB [id number]) IV Assessment Peripheral Access Right Antecubital IV Catheter Access Initiated IV Insertion Date 07/12/25 IV Insertion Time 15:49 Catheter Gauge 20 IV Insertion 1 Attempts Ultrasound Used for No Placement IV Site Assessment WNL IV Care and WNL Maintenance PA: Gastrointestinal Assessment Start: 07/12/25 11:44 Freq: Status: Active Protocol: Document 07/12/25 15:00 ELB (Rec: 07/12/25 17:05 ELB [id number]) GI Assessment Gastrointestinal WNL Parameters Last Vital Signs Temperature 97.6 F 07/12/25 17:08 Pulse Rate 62 07/12/25 17:08 Respiratory Rate 16 07/12/25 17:08 Pulse Oximetry 95 07/12/25 17:08 Blood Pressure 131/81 07/12/25 17:08 Blood Pressure Mean 97 07/12/25 17:08 Blood Pressure Position Sitting 07/12/25 17:08 Oxygen Delivery Room Air 07/12/25 11:55 Weight 130 kg 07/12/25 15:12 Last Result - Abnormals Only RBC 3.47 M/mm3 (4.2-5.4) L 07/12/25 12:19 Hgb 11.3 g/dL (12.0-15.0) L 07/12/25 12:19 Hct 34.3 % (37.0-47.0) L 07/12/25 12:19 Immature Gran % (Auto) 0.6 % (0-0.5) H 07/12/25 12:19 Neut % (Auto) 74.9 % (45.5-73.1) H 07/12/25 12:19 Lymph % (Auto) 14.3 % (18.3-44.2) L 07/12/25 12:19 [place] % (Auto) 8.8 % (2.6-8.5) H 07/12/25 12:19 Abs Immat Gran (auto) 0.04 K/mm3 (0.00-0.031) H 07/12/25 12:19 PT 16.0 Seconds (11.1-14.7) H 07/12/25 15:47 Alkaline Phosphatase 129 U/L (38-126) H 07/12/25 12:19 Lipase 334 U/L (23-300) H 07/12/25 12:19 Ur Specific [place] > 1.045 (1.001-1.035) H 07/12/25 12:19 Most Recent Suicide Severity Rating Suicide Severity Rating NO RISK INDICATED 07/12/25 15:12
--- OUTSIDE RECORDS SUMMARY | 2025-07-12 18:02 | XMS_ITS | Encounter Summary ---
Author Organization [facility] Address [facility] [place] [address] Care Team Providers Care Armed Custom Protection Officer Name Role Phone Rosa No MD Primary Care Provider Lane Ryder MD Unavailable Unavailable Encounter Details Date Type Department Care Team (Late st Contact Info) Description 10/20/2018 Abstract [facility] [address] [place] [address] [address] Ryder MD Social History Tobacco Use Types Packs/Day Years Used Date Smoking Tobacco: Never Alcohol Use Standard Drinks/Week Comments No 0 (1 standard drink = 0.6 oz pur e alcohol) AUDIT-C Answer Date Recorded Frequency of Alcohol Consumption Never 05/04/2018 Average Number of Drinks Not on file 018 Frequency of Binge Drinking Not on file 1002/2018 Comments Unknown Sex and Gender Information Value Date Recorded Sex Assigned at Not on file Legal Sex Female 8:00 AM CDT Gender Identity Not on file Sexual Orientation Not on file documented as of this encounter Plan of Treatment Upcoming Encounters Date Type Department Care Team (Late st Contact Info) Description 11/10/2025 9:15 AM CDT Office Visit [facility] [place] [phone] Gilberto Joe MD [address] [address] documented as of this encounter Visit Diagnoses Not on filedocumented in this encounter Care Teams Armed Custom Protection Officer Relationship Specialty Start Date End Date Rosa No MD [address] [place], [place] [id number] PCP - General FAMILY PRACTICE 05/04/18 Lane Ryder MD [address] [place] [address] [employer] CARDIOVASCULAR [facility] 06/16/18 01/26/20 documented as of this encounter
--- OUTSIDE RECORDS SUMMARY | 2025-07-12 18:03 | XMS_ITS | Clinical Summary ---
Author Organization [facility] Address [facility] [place] [address] Care Team Providers Care Staff Forester Name Role Phone Rosa No MD Primary Care Provider Izzy Gomez MD Unavailable [phone] Allergies Active Allergy Reactions Criticality Noted Date [...] Department Care Team Description 07/12/2025 11:20 AM DIRECTOR INFORMATION Office Visit [facility] Advanced Medicine Radiation Oncology [address] [place] [address] Trini Denny PA Endometrial cancer 07/12/2025 9:08 AM DIRECTOR INFORMATION Hospital Encounter [facility] [address] [place] [address] Endometrial cancer from Last 3 Months Immunizations [...] on file Legal Sex Female 6:09 PM DIRECTOR INFORMATION Gender Identity Not on file Sexual Orientation [...] (290 lb 9.6 oz) 025 10:26 AM DIRECTOR INFORMATION Height 165.1 cm (5' 5) 07/12/2025 10:2 6 AM DIRECTOR INFORMATION Body Mass Index 48.36 07/12/2025 10:26 AM DIRECTOR INFORMATION Plan of Treatment Health Maintenance Due Date [...] history exists Medical Devices Implanted Type Area Glass Vial Bending Conveyor Feeder Device Identifier Shelf Expiration Date Model / Serial / Lot [employer] Xcela Power Port 8fr [id number] - [id number] Implanted:Qty: 1 on 12/03/2023 at [facility] [employer] 08/16/2028 [id number] / / [id number] Explanted Type Area Glass Vial Bending Conveyor Feeder Device Identifier Shelf Expiration Date Model / Serial / Lot Conmed Sg Viabil 10mm X 6cm Shortwire [id number] - [id number] - [id number] Implanted:Qty: 1 on 12/30/2024 by Daniel Smith MD at [facility] Explanted:Qty: 1 on 04/07/2025 by oBnilla Ayala MD at [facility] Stent N/A: Bile Duct Conmed Sg 09/16/2027 [id number] / [id number] / [employer] Sg 10fr 7cm Biliary Stent [id number] - [id number] Implanted:Qty: 1 on 12/01/2024 by Daniel Smith MD at [facility] Explanted:Qty: 1 on 12/30/2024 at [facility] Bile Duct [employer] Sg 09/01/2026 [id number] / / [id number] Procedures Procedure Name Priority Date/Time Associated Diagnosis Comments CT CHEST ABDOMEN PELVIS W CONTRAST Schedule Routine, Read Routine (OP Routine) 07/12/2025 10:17 AM DIRECTOR INFORMATION Endometrial cancer from Last 3 Months Results * CT Chest Abdomen Pelvis W Contrast (07/12/2025 10:17 AM DIRECTOR INFORMATION) Anatomical Region Laterality Modality Body N/A Computed Tomogra phy 07/12/2025 11:2 7 AM DIRECTOR INFORMATION Impressions 07/12/2025 12:53 PM DIRECTOR INFORMATION 1. Findings suggestive of appendicitis with likely [...] Ari Walters M.D. Narrative 07/12/2025 12:53 PM DIRECTOR INFORMATION EXAMINATION: Computed tomography of the chest, abdomen [...] Final Result from Last 3 Months Insurance [facility] MEDICARE [facility] MEDICARE Advance Directives For more information, please contact: [phone] * Full Code (Latest Code Status on File) Date Activated Date Inactivated Comments 04/07/2025 7:39 AM 04/07/2025 3:01 PM * Full Code Date Activated Date Inactivated Comments 12/30/2024 7:01 AM 12/30/2024 1:47 PM * Full Code Date Activated Date Inactivated Comments 12/01/2024 9:05 AM 12/01/2024 4:32 PM * Full Code Date Activated Date Inactivated Comments 12/03/2023 12:52 PM 12/04/2023 5:31 AM Care Teams Staff Forester Relationship Specialty Start Date End Date Rosa No MD [address] [place] [address] PCP - General Family Medicine 12/09/23 Izzy Gomez MD [address] [facility] [place] [address] Radiation Oncologist Radiation Oncology 12/23/23
--- OUTSIDE RECORDS SUMMARY | 2025-07-12 18:03 | XMS_ITS ---
Author Organization [facility] Address [address] [place] [address] Care Team Providers Care Trim Technician Name Role Phone Rosa No MD Primary Care Provider Izzy Gomez MD Unavailable [phone] Active Problems Problem Noted Date Diagnosed Date [...] CARBOplatin (AUC 5) 21 Day Cycles - SITE SUPERINTENDENT 12/03/2023 05/26/2024 CARBOplatin (PARAPLATIN) IVPB in 250 [...]
--- OUTSIDE RECORDS SUMMARY | 2025-07-12 18:03 | XMS_ITS | Clinical Summary ---
Author Organization [facility] Address [facility] [place] [address] Care Team Providers Care Music Department Chair Name Role Phone Rosa Copeland MD Primary Care Provider Allergies Active Allergy Reactions Criticality Noted Date Comments Clarithromycin Rash Low 05/04/2018 Codeine Other (see comment) 05/04/2018 felt like I was high Erythromycin Rash Low 05/04/2018 Lactate Unknown 05/04/2018 Nsaids Rash Low 05/04/2018 Penicillin G Rash Low 01/25/2022 Penicillins Rash Low 05/04/2018 Feet swelling Sulfa Antibiotics Rash Low 05/04/2018 Sulfate Rash Low 05/04/2018 Pentazocine Rash Low 05/04/2018 Azithromycin Rash Low 05/04/2018 Medications gabapentin 300 MG capsule Take 1 capsule (300 mg total) by mouth nightly at bedtime. at bedtime 10/18/2020 Active rivaroxaban (XARELTO) 20 MG Tab tablet Take 1 tablet (20 mg total) by mouth daily with supper. Take with food--DO NOT RESUME UNTIL 06/14 EVENING!!!! 90 tablet 3 06/14/2022 Active ezetimibe (ZETIA) 10 MG tablet Take 1 tablet (10 mg total) by mouth daily. 30 tablet 06/14/2022 Active hydroCHLOROthia zide (HYDRODIURIL) 25 MG tablet Take 1 tablet (25 mg total) by mouth every morning. 30 tablet 06/14/2022 Active lisinopril (PRINIVIL) 20 MG tabletIndicatio ns:HTN Take 1 tablet (20 mg total) by mouth 2 (two) times a day. Indications: HTN 60 tablet 06/14/2022 Active omeprazole (PRILOSEC) 20 MG capsuleIndicati ons:gerd Take 1 capsule (20 mg total) by mouth daily as needed. Indications: gerd 30 capsule 06/14/2022 Active escitalopram (LEXAPRO) 5 MG tablet Take 1 tablet (5 mg total) by mouth daily. 06/28/2022 Active metoprolol succinate ER (TOPROL-XL) 50 MG 24 hr tablet Take 1 tablet (50 mg total) by mouth daily. 90 tablet 3 02/24/2023 Active Active Problems Problem Noted Date Diagnosed Date Morbid (severe) obesity due to excess calories 0 10/24/2022 Body mass index (BMI) 45.0-49.9, adult NSTEMI (non-ST elevated myocardial infarction) 1 08/12/2021 Osteoarthritis of right knee 01/26/2022 Total knee replacement status, right 01/25/2022 Nonrheumatic mitral valve regurgitation 11/28/19 21 Venous insufficiency 11/27/2020 Class 3 severe obesity due t o excess calories without serious comorbidity with body mass index (BMI) of 45.0 to 49.9 in adult 05/15/2020 Paroxysmal atrial fibrillation 05/25/2018 Vitamin D deficiency 10/11/2013 Overview (01/26/2022): Date Onset: 10/11/2013 Presbyesophagus 10/11/2013 Overview (01/26/2022): Date Onset: 10/11/2013 Other chronic nonalcoholic liver disease 014 Overview (01/26/2022): Date Onset: 10/11/2013 Hepatic steatosis 10/07/2013 Overview (01/26/2022): Date Onset: 10/07/2013 Abnormal fasting glucose 09/14/2013 Overview (01/26/2022): Date Onset: 09/14/2013 Hernia, hiatal 09/14/2013 Overview (01/26/2022): Date Onset: 09/14/2013 Osteoarthrosis 03/30/2013 Overview (01/26/2022): Date Onset: 03/30/2013 Anxiety disorder 03/30/2013 Overview (01/26/2022): Date Onset: 03/30/2013 Gastro-esophageal reflux disease without esophag itis 08/13/2011 Hypertension Hyperlipidemia Resolved Problems Problem Noted Date Diagnosed Date Resolved Date Preop examination 10/23/2018 01/14/2022 Encounters Date Type Department Care Team Description 07/05/2025 8:01 AM TARGETEER - 07/05/2025 11:59 PM TARGETEER Hospital Encounter [facility] [address] [place] [address] Cass Wei, ANP- Discharge Disposition: Home or Self Care (Routine Discharge) 07/05/2025 Orders Only [facility] [address] [place] [address] Cass Wei ANP-BC 07/05/2025 Travel 06/17/2025 12:30 PM T[facility]EER - 06/17/2025 11:59 PM T[facility]EER Hospital Encounter [facility] [address] [place] [address] Daniel Smith MD Discharge Disposition: Home or Self Care (Routine Discharge) 06/17/2025 Orders Only [facility] [address] [place] [address] Daniel Smith MD 06/17/2025 Travel 04/18/2025 9:23 AM CDT - 04/18/2025 11:59 PM CDT Hospital Encounter [facility] [address] [place] [address] Daniel Smith MD Discharge Disposition: Home or Self Care (Routine Discharge) 04/18/2025 Orders Only [facility] [address] [place] [address] Daniel Smith MD from Last 3 Months Family History Medical History Relation Comments Breast Cancer Daughter Hypertension Father Breast Cancer Mother Hypertension Mother Relation Status Comments Daughter Alive Father Mother Social History Tobacco Use Types Packs/Day Years Used Date Smoking Tobacco: Never Smokeless Tobacco: Never Alcohol Use Standard Drinks/Week Comments No 0 (1 standard drink = 0.6 oz pur e alcohol) AUDIT-C Answer Date Recorded Frequency of Alcohol Consumption Never 05/04/2018 Average Number of Drinks Not on file 018 Frequency of Binge Drinking Not on file 02/2018 Comments No Sex and Gender Information Value Date Recorded Sex Assigned at Not on file Legal Sex Female 8:00 AM CDT Gender Identity Not on file Sexual Orientation Not on file Last Filed Vital Signs Vital Sign Reading Time Taken Comments Blood Pressure 126/70 11/04/2024 9:13 AM CDT Pulse 60 11/04/2024 9:09 AM CDT Temperature 36.9 C (98.5 F) 05/01/2023 11:18 AM CDT Respiratory Rate 16 11/04/2024 9:09 AM CDT Oxygen Saturation 97% 11/04/2024 9:09 AM CDT Inhaled Oxygen Concentration - - Weight 127.4 kg (280 lb 12.8 oz) 11/04/2024 9:09 AM CDT Height 163.2 cm (5' 4.25) 11/04/2024 9:09 AM CD T Body Mass Index 47.82 11/04/2024 9:09 AM CDT Plan of Treatment Upcoming Encounters Date Type Department Care Team (Late st Contact Info) Description 11/10/2025 9:15 AM CDT Office Visit [facility] [place] [phone] Gilberto Joe MD [facility]. [address] [address] Health Maintenance Due Date Last Done Comments ASCVD Statin 1950 Colorectal Cancer Screening Colonoscopy (10 Years) 1950 Hepatitis C 12/24/1967 Hepatitis A Vaccines (1 of 2 - Risk 2-dose series) 1968 Annual Medicare Wellness Visit 2014 Zoster Vaccines (3 of 3) 02/05/2023 12/11/2022, 07/30 COVID-19 Vaccine (2 - season) 2025 10/09/2020 DTaP, Tdap and Td Vaccines (2 - Td or Tdap) 11/01/2032 11/01/2022 Pneumococcal Vaccine: 50+ Years Completed 02/19/2019, 09/04/2017 Dexa Scan (General) Completed 01/13/2023 RSV Immunization or 60+ Years Completed 06/16/2023 Influenza Adult Completed 06/14/2025, 04/27, 05/04/2018, Additional history exists Meningococcal B Vaccine Aged Out No l onger eligible based on patient's age to complete this topic Meningococcal Vaccine Aged Out No joanie nhi eligible based on patient's age to complete this topic RSV Immunizations Under 20 Months Aged Out No longer eligible based on patient's age to complete this topic Goals Goal Patient Goal Type Associated Problems Recent Progress Patient-Stated? Author Patient will return to prior living situation and remain independent in ADLs upon discharge from hospital Lifestyle No Rosaura Dumas RN Medical Devices Implanted Type Area Apartment Community Assistant Manager Device Identifier Shelf Expiration Date Model / Serial / Lot Cement Bone Tobramycin Simplex - [id number] Implanted:Qty : 1 on 01/25/2022 by Molly Hargrove MD at [facility] Cement Implant Right: Knee [employer]EL [id number] 10/25/2022 6197-9-0 10 / / [id number] Component Femoral 5 Knee Right Posterior Stabilize Bead [employer] Pa - [id number] Implanted:Qty : 1 on 01/25/2022 by Molly Hargrove MD at [facility] Knee Components Right: Knee [employer] [id number] 10/24/2026 5516-F-5 02 / / [id number] Plate Crab [place]chard Tri Ts Base Size 4 - [id number] Implanted:Qty : 1 on 01/25/2022 by Molly Hargrove MD at [facility] Knee Components Right: Knee [employer] [id number] 05/27/2026 5521-B-4 00 / / [id number] Component Patellar S 31x9mm Tritanium Sterile Latex Free - [id number] Implanted:Qty : 1 on 01/25/2022 by Molly Hargrove MD at [facility] Patella Right: Knee [employer] [id number] 11/20/2026 5556-L-3 19 / / [id number] Knee Total Stablizer+ Tibial Insert Implanted:Qty : 1 on 01/25/2022 by Molly Hargrove MD at [facility] Right: Knee [employer] [id number] 05/20/2026 5537-G-4 13-E / / [id number] Explanted Type Area Apartment Community Assistant Manager Device Identifier Shelf Expiration Date Model / Serial / Lot Pin Fixation Waqas L110 Mm Od3.2 Mm Bone - [id number] Explanted:Qty: 1 on 01/25/2022 by Molly Hargrove MD at [facility] Pin Right: Knee [employer] 10/25/2026 [id number] / / [id number] Pin Fixation L140 Mm Od3.2 Mm Bone - [id number] Explanted:Qty: 1 on 01/25/2022 by Molly Hargrove MD at [facility] Pin Right: Knee [employer] 01/30/2025 [id number] / / [id number] Procedures Procedure Name Priority Date/Time Associated Diagnosis Comments MG SCREENING W JUAN CARLOS CHRISTI DIGI Routine 07/05/2025 8:27 AM T[facility]EER Encounter for screening mammogram for malignant neoplasm of breast MAGNESIUM Routine 07/05/2025 8:25 AM TARGETEER Morbid (severe) obesity due to excess calories (CMS/HCC) Essential (primary) hypertension Hyperlipidemia, unspecified Malignant neoplasm of uterus, part unspecified (CMS/HCC HHS/HCC) Polyneuropathy, unspecified Hyperglycemia, unspecified VITAMIN B-12 Routine 07/05/2025 8:25 AM TARGETEER Morbid (severe) obesity due to excess calories (CMS/HCC) Essential (primary) hypertension Hyperlipidemia, unspecified Malignant neoplasm of uterus, part unspecified (CMS/HCC HHS/HCC) Polyneuropathy, unspecified Hyperglycemia, unspecified HEMOGLOBIN, GLYCOSYLATED Routine 07/05/2025 8:25 AM TARGETEER Morbid (severe) obesity due to excess calories (CMS/HCC) Essential (primary) hypertension Hyperlipidemia, unspecified Malignant neoplasm of uterus, part unspecified (CMS/HCC HHS/HCC) Polyneuropathy, unspecified Hyperglycemia, unspecified LIPID PANEL Routine 07/05/2025 8:25 AM TARGETEER Morbid (severe) obesity due to excess calories (CMS/HCC) Essential (primary) hypertension Hyperlipidemia, unspecified Malignant neoplasm of uterus, part unspecified (CMS/HCC HHS/HCC) Polyneuropathy, unspecified Hyperglycemia, unspecified HC CBC AUTO W/AUTO DIFF Routine 07/05/2025 8:25 AM TARGETEER Morbid (severe) obesity due to excess calories (CMS/HCC) Essential (primary) hypertension Hyperlipidemia, unspecified Malignant neoplasm of uterus, part unspecified (CMS/HCC HHS/HCC) Polyneuropathy, unspecified Hyperglycemia, unspecified THYROID STIM HORMONE TSH Routine 07/05/2025 8:25 AM TARGETEER Morbid (severe) obesity due to excess calories (CMS/HCC) Essential (primary) hypertension Hyperlipidemia, unspecified Malignant neoplasm of uterus, part unspecified (CMS/HCC HHS/HCC) Polyneuropathy, unspecified Hyperglycemia, unspecified THYROXINE, FREE (FT4) Routine 07/05/2025 8:25 AM TARGETEER Morbid (severe) obesity due to excess calories (CMS/HCC) Essential (primary) hypertension Hyperlipidemia, unspecified Malignant neoplasm of uterus, part unspecified (CMS/HCC HHS/HCC) Polyneuropathy, unspecified Hyperglycemia, unspecified COMPREHENSIVE METABOLIC PANEL Routine 07/05/2025 8:25 AM TARGETEER Morbid (severe) obesity due to excess calories (CMS/HCC) Essential (primary) hypertension Hyperlipidemia, unspecified Malignant neoplasm of uterus, part unspecified (CMS/HCC HHS/HCC) Polyneuropathy, unspecified Hyperglycemia, unspecified VITAMIN D, 25 OH Routine 07/05/2025 8:25 AM TARGETEER Morbid (severe) obesity due to excess calories (CMS/HCC) Essential (primary) hypertension Hyperlipidemia, unspecified Malignant neoplasm of uterus, part unspecified (CMS/HCC HHS/HCC) Polyneuropathy, unspecified Hyperglycemia, unspecified IMMUNOASY TUMOR AG CA 19-9 Routine 06/17/2025 12:35 PM TARGETEER Obstruction of bile duct (CMS/HCC) Nonvisualization of gallbladder Other abnormal tumor markers Personal history of surgery to heart and great vessels, presenting hazards to health HEPATIC FUNCTION PANEL Routine 12:35 PM TARGETEER Obstruction of bile duct (CMS/HCC) Nonvisualization of gallbladder Other abnormal tumor markers Personal history of surgery to heart and great vessels, presenting hazards to health HC TUMOR AG CA 19-9 -90 Routine 04/18/2025 9:27 AM CDT Obstruction of bile duct (CMS/HCC) Nonvisualization of gallbladder Other abnormal tumor markers Personal history of surgery to heart and great vessels, presenting hazards to health HC LIVER (HEPATIC) PANEL Routine 04/18/2025 9:27 AM CDT Obstruction of bile duct (CMS/HCC) Nonvisualization of gallbladder Other abnormal tumor markers Personal history of surgery to heart and great vessels, presenting hazards to health BONE DENSITY/DEXA Routine 01/13/2023 9:0 0 AM CDT Post-menopausal from Last 3 Months or Most Recently Relevant to Health Maintenance Results * MG SCREENING W JUAN CARLOS CHRISTI DIGI (07/05/2025 8:27 AM TARGETEER) Anatomical Region Laterality Modality Breast Bilateral Mammography 07/07/2025 9:35 AM T[facility]EER Impressions 07/07/2025 9:38 AM TARGETEER =====IMPRESSION:===== Small right breast mass. ASSESSMENT: ACR BI-RADS 0 - INCOMPLETE: NEEDS ADDITIONAL IMAGING EVALUATION Recommendation: 1: Additional Imaging Right COMMENTS: Diagnostic mammogram with spot compression views and potential ultrasound, right. Ordered By: ROSA COPELAND Interpreted By: Bernard Betancourt MD, 07/07/2025 9:35 AM Narrative 07/07/2025 9:38 AM TARGETEER [address] [place] [address] EXAMINATION: Digital bilateral screening mammogram with 3-D [...] abnormalities are identified within the left breast. Rosa Copeland MD MAMMO Final Result * (ABNORMAL) VITAMIN D, 25 OH (07/05/2025 8:25 AM TARGETEER) VITAMIN D 25 HYDROXY S/P/B 24(L) 30 - 100 NG/ML 07/05/2025 2:15 PM T[facility]EER [facility] Comment: INTERPRETATION DEFICIENT <20 INSUFFICIENT 20-29 SUFFICIENT 30-100 BLOOD VENOUS BLOOD SPECIMEN / Unknown 07/05/2025 8:25 AM TARGETEER Cass Wei [facility] Final R esult [facility] [address] [place] [address], * VITAMIN B-12 (07/05/2025 8:25 AM TARGETEER) VITAMIN B12 S/P/B 553 254 - 1,320 PG/ML 07/05/2025 2:39 PM T[facility]ER [facility] BLOOD VENOUS BLOOD SPECIMEN / Unknown 07/05/2025 8:25 AM TARGETEER Cass Wei [facility] Final R esult [facility] [address] [place] [address], * THYROXINE, FREE (FT4) (07/05/2025 8:25 AM TARGETEER) FREE T4 1.03 0.76 - 1.46 NG/DL 07/05/2025 2:39 PM T[facility]EER [facility] BLOOD VENOUS BLOOD SPECIMEN / Unknown 07/05/2025 8:25 AM [facility] Final R esult [facility] [address] [place] [address], [place] [phone] * THYROID STIM HORMONE TSH (07/05/2025 8:25 AM TARGETEER) TSH 1.340 0.358 - 3.74 uIU/ML 07/05/2025 2:39 PM T[facility]EER [facility] Comment: HIGH DOSES OF BIOTIN MAY INTERFERE WITH THIS TEST RESULT. CORRELATION TO CLINICAL HISTORY AND PRESENTATION RECOMMENDED. BLOOD VENOUS BLOOD SPECIMEN / Unknown 07/05/2025 8:25 AM TARGETEER Cass [facility] Final R esult [facility] [address] [place] [address], * (ABNORMAL) MAGNESIUM (07/05/2025 8:25 AM TARGETEER) MAGNESIUM 1.7(L) 1.8 - 2.4 MG/DL 07/05/2025 8:48 AM TARGETEER [facility] BLOOD VENOUS BLOOD SPECIMEN / Unknown 07/05/2025 8:25 AM [facility]ER Cass [facility] Performing Organization Address City/[facility]/ZIP Co de Phone Number [facility] [address] [place] [address], * (ABNORMAL) LIPID PANEL (07/05/2025 8:25 AM TARGETEER) CHOLESTEROL 202(H) <200 MG/DL 07/05/2025 2:39 PM T[facility]EER [facility] TRIGLYCERIDES 162(H) <150 MG/DL 07/05/2025 2:39 PM T[facility]EER [facility] HDL 59 >40.0 MG/DL 07/05/2025 2:39 PM T[facility]ER [facility] LDL (CALCULATED) 111(H) <100 MG/DL 07/05/2025 2:39 PM T[facility]EER [facility] Comment:CALCULATED USING THE FRIEDEWALD EQUATION NON HDL CHOLESTEROL 143(H) <130 MG/DL 07/05/2025 2:39 PM T[facility]ER [facility] CHOL/HDL RATIO 3.4 0.0 - 4.5 07/05/2025 2:39 PM T[facility]ER [facility] VLDL CALCULATION 32 5 - 55 MG/DL 07/05/2025 2:39 PM [facility]ER [facility] LIPID INTERPRETATION 07/05/2025 2:39 PM T[facility]ER [facility] Comment: NIH CONCENSUS REPORT RECOMMENDATIONS: ADULT CHILD LOW RISK: CHOLESTEROL <200 <170 TRIGLYCERIDE <150 --- HDL >=60 --- LDL <100 <110 BORDERLINE: CHOLESTEROL 200-239 170-199 TRIGLYCERIDE 150-199 --- HDL 40-59 --- LDL 100-159 110-129 HIGH RISK: CHOLESTEROL >=240 >=200 TRIGLYCERIDE >=200 --- HDL <40 --- LDL >=160 >=130 BLOOD VENOUS BLOOD SPECIMEN / Unknown 07/05/2025 8:25 AM TARGETEER Cass Wei [facility] Final R esult [facility] [address] [place] [address], [place] [phone] * HEMOGLOBIN, GLYCOSYLATED (07/05/2025 8:25 AM TARGETEER) HGB A1C 5.6 <5.7 % 07/05/2025 3:20 PM T[facility]EER [facility] Comment: ADA GUIDELINES 2010 5.7 TO 6.4% INCREASED RISK OF DIABETES > OR = 6.5% CONSISTENT WITH DIABETES ESTIMATED AVG GLUCOSE 114 mg/dL 07/05/2025 3:20 PM T[facility]EER [facility] BLOOD VENOUS BLOOD SPECIMEN / Unknown 07/05/2025 8:25 AM TARGETEER Cass Wei [facility] Final R esult [facility] [address] [place] [address], [place] [phone] * (ABNORMAL) COMPREHENSIVE METABOLIC PANEL (07/05/2025 8:25 AM [facility] GLUCOSE 126(H) 70 - 99 MG/DL 07/05/2025 8:48 AM T[facility]EER [facility] BUN 18 7 - 18 MG/DL 07/05/2025 8:48 AM [facility] CREATININE S/P/B 1.06 0.50 - 1.20 MG/DL 07/05/2025 8:48 AM [facility] SODIUM S/P/B 136 136 - 145 MMOL/L 07/05/2025 8:48 AM [facility] POTASSIUM S/P/B 3.8 3.5 - 5.1 MMOL/L 07/05/2025 8:48 AM [facility] CHLORIDE S/P/B 99(L) 100 - 108 MMOL/L 07/05/2025 8:48 AM [facility] CO2 27.7 21.0 - 32.0 MMOL/L 07/05/2025 8:48 AM [facility] CALCIUM S/P/B 8.7 8.5 - 10.1 MG/DL 07/05/2025 8:48 AM [facility] BILIRUBIN TOTAL S/P/B 0.5 0.2 - 1.2 MG/DL 07/05/2025 8:48 AM [facility] Comment: THIS ASSAY IS NOT RECOMMENDED FOR PATIENTS UNDERGOING TREATMENT WITH ELTROMBOPAG DUE TO THE POTENTIAL FOR FALSELY ELEVATED RESULTS. TOTAL PROTEIN S/P/B 7.1 6.4 - 8.2 G/DL 07/05/2025 8:48 AM [facility] ALBUMIN S/P/B 3.0(L) 3.4 - 5.0 G/DL 07/05/2025 8:48 AM [facility] AST 15 15 - 37 U/L 07/05/2025 8:48 AM [facility] ALT 19 14 - 55 U/L 07/05/2025 8:48 AM T[facility]ER [facility] ALKALINE PHOSPHATASE S/P/B 161(H) 50 - 136 U/L 07/05/2025 8:48 AM T[facility]EER [facility] ANION GAP 9.3 5.0 - 15.0 MMOL/L 07/05/2025 8:48 AM T[facility]ER [facility] BUN CREATININE RATIO 17.0 6 - 26 07/05/2025 8:48 AM T[facility]EER [facility] A/G RATIO 0.7(L) 1.0 - 2.5 RATIO 07/05/2025 8:48 AM T[facility]EER [facility] GFR ESTIMATE 55(L) >90 ML/MIN/1.7 3 M2 07/05/2025 8:48 AM TARGETEER [facility] Comment: NOTE: eGFR is not calculated for patients <18 years of age. This is an estimated GFR calculation using the new CKD EPI creatinine equation without race and so does not require a correction factor for race. This estimated GFR should not be used for calculating drug doses. BLOOD VENOUS BLOOD SPECIMEN / Unknown 07/05/2025 8:25 AM TARGETEER us Cass Wei [facility] Final R esult [address] [place] [address], * (ABNORMAL) CBC W/DIFF (07/05/2025 8:25 AM TARGETEER) WBC 7.26 4.50 - 11.00 x10'3/uL 07/05/2025 8:34 AM TARGETEER [facility] RBC 3.86(L) 4.00 - 5.20 x10'6/uL 07/05/2025 8:34 AM T[facility]EER [facility] HGB 12.2 12.0 - 16.0 G/DL 07/05/2025 8:34 AM T[facility]EER [facility] HCT 37.0(L) 38.0 - 48.0 % 07/05/2025 8:34 AM TARGETEER [facility] MCV 95.9 80.0 - 100.0 FL 07/05/2025 8:34 AM [facility] MCH 31.6 26.0 - 34.0 PG 07/05/2025 8:34 AM [facility] MCHC 33.0 31.0 - 37.0 G/DL 07/05/2025 8:34 AM [facility] RDW 12.7 11.6 - 14.8 % 07/05/2025 8:34 AM [facility] PLT 329 130 - 400 x10'3/uL 07/05/2025 8:34 AM [facility] MPV 9.4 7.0 - 12.0 FL 07/05/2025 8:34 AM [facility] CBC COMMENT AUTOMATED RBC MORPHOLOGY AND PLATELET EVALUATION NORMAL 07/05/2025 8:34 AM [facility] NEUTROPHILS % 76.5(H) 40.0 - 74.0 % 07/05/2025 8:34 AM [facility] LYMPHOCYTES % 13.2(L) 14.0 - 46.0 % 07/05/2025 8:34 AM [facility] MONOCYTES % 7.6 4.0 - 13.0 % 07/05/2025 8:34 AM [facility] EOSINOPHILS 1.4 0.0 - 7.0 % 07/05/2025 8:34 AM [facility] BASOPHILS 0.7 0.0 - 3.0 % 07/05/2025 8:34 AM [facility] IMMATURE GRANS % 0.6(H) 0.0 - 0.43 % 07/05/2025 8:34 AM [facility] NRBC % 0.0 % 07/05/2025 8:34 AM [facility] ABS. NEUTROPHILS TOTAL 5.56 1.69 - 7.81 x10'3/uL 07/05/2025 8:34 AM [facility] ABS. LYMPHOCYTES 0.96 0.21 - 5.42 x10'3/uL 07/05/2025 8:34 AM [facility] ABS. MONOCYTES 0.55 0.04 - 1.37 x10'3/uL 07/05/2025 8:34 AM TARGETEER [facility] ABS. EOSINOPHILS 0.10 0.00 - 0.68 x10'3/uL 07/05/2025 8:34 AM T[facility]EER [facility] ABS. BASOPHILS 0.05 0.00 - 0.08 x10'3/uL 07/05/2025 8:34 AM [facility]ER [facility] ABS. IMMATURE GRANULOCYTES 0.04 0.00 - 0.06 x10'3/uL 07/05/2025 8:34 AM [facility] ABS. NUCLEATED RBC'S 0.00 0.00 - 0.01 x10'3/uL 07/05/2025 8:34 AM [facility] BLOOD VENOUS BLOOD SPECIMEN / Unknown 07/05/2025 8:25 AM TARGETEER Cass Wei [facility] Final R esult [address] [place] [address], * IMMUNOASY TUMOR AG CA 19-9 (06/17/2025 12:35 PM TARGETEER) CA 19-9 15 <34 U/mL 06/20/2025 10:39 AM TARGETEER [employer] [facility] Comment: This test was performed using the Siemens chemiluminescent method. Values obtained from different assay methods cannot be used inter- changeably. CA 19-9 levels, regardless of value, should not be interpreted as absolute evidence of the presence or absence of disease. Test Performed by [employer], [employer] [facility], [address] [place] [address] Lul Gilliam M.D., Ph.D., Director of Laboratories , CLIA [id number] BLOOD VENOUS BLOOD SPECIMEN / Unknown 06/17/2025 12:35 PM TARGETEER us Daniel Smith MD LABORATORY Final Resul t [facility] [address] [place] [address], [place] [phone] * (ABNORMAL) HEPATIC FUNCTION PANEL (06/17/2025 12:35 PM TARGETEER) TOTAL PROTEIN S/P/B 6.4 6.4 - 8.2 G/DL 06/17/2025 1:02 PM [facility] ALBUMIN S/P/B 3.3(L) 3.4 - 5.0 G/DL 06/17/2025 1:02 PM [facility] BILIRUBIN TOTAL S/P/B 0.4 0.2 - 1.2 MG/DL 06/17/2025 1:02 PM [facility] Comment: THIS ASSAY IS NOT RECOMMENDED FOR PATIENTS UNDERGOING TREATMENT WITH ELTROMBOPAG DUE TO THE POTENTIAL FOR FALSELY ELEVATED RESULTS. BILIRUBIN DIRECT S/P/B 0.1 0.0 - 0.2 MG/DL 06/17/2025 1:02 PM [facility] BILIRUBIN INDIRECT S/P/B 0.3 0.0 - 0.9 MG/DL 06/17/2025 1:02 PM [facility] [facility] ALKALINE PHOSPHATASE S/P/B 142(H) 50 - 136 U/L 06/17/2025 1:02 PM [facility] AST 14(L) 15 - 37 U/L 06/17/2025 1:02 PM [facility] ALT 17 14 - 55 U/L 06/17/2025 1:02 PM [facility] A/G RATIO 1.1 1.0 - 2.5 RATIO 06/17/2025 1:02 PM [facility] BLOOD VENOUS BLOOD SPECIMEN / Unknown 06/17/2025 12:35 PM [facility] Daniel Smith MD LABORATORY Final Resul t Performing Organization Address [facility]/ZIP Co de Phone Number [facility] [address] [place] [address], [place] * IMMUNOASY TUMOR AG CA 19-9 (04/18/2025 9:27 AM CDT) Pathologist [facility] CA 19-9 11 <34 U/mL 04/21/2025 5:45 AM CDT [employer] [facility] Comment: This test was performed using the Siemens chemiluminescent method. Values obtained from different assay methods cannot be used inter- changeably. CA 19-9 levels, regardless of value, should not be interpreted as absolute evidence of the presence or absence of disease. Test Performed by [facility], [employer] [facility], [address] [place] [address] Lul Gilliam M.D., Ph.D., Director of Laboratories , [facility] [id number] 04/18/2025 9:27 AM CDT Daniel Smith MD LABORATORY Final Resul t Performing Organization Address [facility] Co de Phone Number [id number] [phone], * (ABNORMAL) HEPATIC FUNCTION PANEL (04/18/2025 9:27 AM CDT) Pathologist [facility] TOTAL PROTEIN S/P/B 6.4 6.4 - 8.2 G/DL 04/18/2025 11:13 AM CDT [facility] ALBUMIN S/P/B 3.3(L) 3.4 - 5.0 G/DL 04/18/2025 11:13 AM CDT [facility] BILIRUBIN TOTAL S/P/B 0.5 0.2 - 1.2 MG/DL 04/18/2025 11:13 AM CDT [facility] Comment: THIS ASSAY IS NOT RECOMMENDED FOR PATIENTS UNDERGOING TREATMENT WITH ELTROMBOPAG DUE TO THE POTENTIAL FOR FALSELY ELEVATED RESULTS. BILIRUBIN DIRECT S/P/B 0.1 0.0 - 0.2 MG/DL 04/18/2025 11:13 AM CDT [facility] BILIRUBIN INDIRECT S/P/B 0.4 0.0 - 0.9 MG/DL 04/18/2025 11:13 AM CDT [facility] ALKALINE PHOSPHATASE S/P/B 143(H) 50 - 136 U/L 04/18/2025 11:13 AM CDT [facility] AST 17 15 - 37 U/L 04/18/2025 11:13 AM CDT [facility] ALT 19 14 - 55 U/L 04/18/2025 11:13 AM CDT [facility] A/G RATIO 1.1 1.0 - 2.5 RATIO 04/18/2025 11:13 AM CDT [facility] 04/18/2025 9:27 AM CDT us Daniel Smith MD LABORATORY Final Resul t [address] [place] [address], * BONE DENSITY/DEXA (01/13/2023 9:00 AM CDT) Anatomical Region Laterality Modality Bone Other, Computed Tomography 01/13/2023 10:3 6 PM CDT Impressions 01/13/2023 10:40 PM CDT IMPRESSION: WHO Classification: normal. No increased risk of fracture. Referred By: ROSA COPELAND Interpreted By: Dimitri Cunningham MD, 01/13/2023 10:36 PM Narrative 01/13/2023 10:40 PM CDT Examination: Bone Density Axial Exam Date/Time: 01/13/2023 8:44 AM Reason For Exam: Postmenopausal. Comparison: 05/20/2019 DEXA scan Findings: DEXA bone densitometry The bone mineral density (BMD) was determined by dual-energy x-ray absorptiometry, the results are as follows: AP Lumbar Spine L1 through L4 BMD Patient (GM/SQCM): 1.332 T-Score (Standard deviations from young adult peak bone density): 1.3 Left femoral neck: BMD Patient (mg/SQCM): 808 T-Score (Standard deviations from young adult peak bone density): -0.8 Total Right femur: BMD Patient (mg/SQCM): 1008 T-Score (Standard deviations from young adult peak bone density): 0.5 Recommendations: All patients should ensure an adequate intake of dietary calcium and vitamin D. The NOF recommend adults under the age of 50 need 1000 mg of calcium and 400-800 IU of vitamin D daily. Effective therapy for the prevention and treatment of osteoporosis include biphosphonates. Follow-up: People with diagnosed cases of osteoporosis or at high risk for fracture should have regular bone mineral density test. For patients eligible for Medicare, routine testing is allowed once every 2 years. Testing frequency can be increased to one year for patients who have rapidly progressing disease, those who are receiving or discontinuing medical therapy to restore bone mass, or have additional risk factors. Procedure Note Dimitri Cunningham MD - 01/13/2023 Examination: Bone Density Axial Exam Date/Time: 01/13/2023 8:44 AM Reason For Exam: Postmenopausal. Comparison: 05/20/2019 DEXA scan Findings: DEXA bone densitometry The bone mineral density (BMD) was determined bydual-energy x-ray absorptiometry, the results are as follows: AP Lumbar Spine L1 through L4 BMD Patient (GM/SQCM): 1.332 T-Score (Standard deviations from young adult peak bonedensity): 1.3 Left femoral neck: BMD Patient (mg/SQCM): 808 T-Score (Standard deviations from young adult peak bonedensity): -0.8 Total Right femur: BMD Patient (mg/SQCM): 1008 T-Score (Standard deviations from young adult peak bonedensity): 0.5 Recommendations: All patients should ensure an adequate intake of dietary calcium andvitamin D. The NOF recommend adults under the age of 50 need 1000 mg ofcalcium and 400-800 IU of vitamin D daily. Effective therapy for theprevention and treatment of osteoporosis include biphosphonates. Follow-up: People with diagnosed cases of osteoporosis or at high risk for fractureshould have regular bone mineral density test. For patients eligible forMedicare, routine testing is allowed once every 2 years. Testing frequencycan be increased to one year for patients who have rapidly progressingdisease, those who are receiving or discontinuing medical therapy torestore bone mass, or have additional risk factors. IMPRESSION: WHO Classification: normal. No increased risk of fracture. Referred By: ROSA COPELAND Interpreted By: Dimitri Cunningham MD, 01/13/2023 10:36 PM Rosa Copeland MD DEXA Final Result from Last 3 Months or Most Recently Relevant to Health Maintenance Insurance [employer] MEDICARE Advance Directives Documents on File Type Date Recorded Patient [employer] Expl anation Advance Directives and Living Will 06/20/2022 10:24 AM 06/13/22 POLST FORM Advance Directives and Living Will 05/02/2018 12:00 AM ADVANCED DIRECTIVES * Full Code (Latest Code Status on File) Date Activated Date Inactivated Comments 06/13/2022 2:44 PM 06/14/2022 4:13 PM * POLST Date Activated Date Inactivated Comments 06/12/2022 3:11 PM 06/13/2022 2:44 PM Question Answer Comments Cardiopulmonary Resuscitatio n (CPR) If patient has no pulse and is not breathing: ATTEMPT Resuscitation CPR Medical Interventions when N OT in Cardiopulmonary Arrest (If patient is found with a pulse and/or is breathing): Selective Treatment - Do NOT Intubate Selective Treatment Options: SuctionOxyg enCPAP/BIPAPIV FluidsIV Medications Artificially administered nu trition - Offer food by mouth, if feasible and desired: Trial - Defined Trial Period Documentation of discussion: Patient Care Teams Music Department Chair Relationship Specialty Start Date End Date Rosa Copeland MD [address] [place] [address] PCP - General FAMILY PRACTICE 05/04/18
--- NOTE | 2025-07-12 18:09 | ADMGEN ---
This patient, Susan Hassan, was admitted to Medical Room 261-01. Patient/family oriented to hospital policies and general routines including ID bracelet, bed and alarms, visiting hours, pain management, procedures, bathroom and other care routines, personal items, smoking policy, room service/diet, and visiting hours. Information on how to activate the Rapid Response Team has been discussed. Patient/Family are encouraged to report perceived risks to care and to ask questions if they do not understand what they are told or what they should do.
[2025-07-12 18:10] VITALS: BMI 49.1
--- NOTE | 2025-07-12 19:03 | PM.IMHP2 ---
H&P: HPI History of Present Illness Date/Time: 07/12/25 19:03 Chief Complaint: abnormal CT result Narrative: 74-year-old female with a past medical history of AFib, hypertension uterine cancer in remission presents to the ED on 07/12/[address] abdomen pelvis at an outside facility was concerning for ruptured appendicitis. Patient states that since just before she began having right lower quadrant abdominal pain with nausea and vomiting. She states today is the 1st time she has not noticed the abdominal pain. She denies having any fevers. Denies chest pain, shortness a breath. Patient was under the assumption she had the flu. She states the pain was noticeable but never unbearable. Initial VS 123/82, HR 64, resp 14, afebrile and 96% on RA. labs unremarkable. No leukocytosis. Renal function intact. CT abdomen pelvis with 2.9 cm complex fluid accumulation in the expected location of the appendix may represent ruptured appendix and developing abscess. Minimal pericolonic strandy changes about the proximal sigmoid colon with diverticuli are noted; very early or mild diverticulitis in this area is not excluded. Review of Systems Review of Systems: All systems reviewed & are unremarkable except as noted in HPI and below PMFSH Past Medical History Medical History (Updated 07/13/25 @ 07:29 by Larissa Kauffman APRN) Atrial fibrillation Hypertension Surgical History Surgical History (Updated 07/12/25 @ 15:24 by Linda Mascorro PA-C) History of hysterectomy History of cholecystectomy Family History Family History Father Hypertension Mother Hypertension Family history of malignant neoplasm of breast in first degree relative Sibling Hypertension Social History Social History Smoking status: Never smoker Alcohol intake: never Substance use: never Lack of Transportation: No Lack of Food: Never True Current Housing: I Have Housing Concerned About Future Housing: No Difficulty Paying Gas/Electric Bills: No Difficulty Paying for Meds: No Currently Unemployed: No Education: High School Diploma/GED Difficulty w/ Childcare or Family Care: No Spiritual care concerns: No Meds Home Medications and Allergies Home Medications ?Medication ?Instructions ?Recorded ?Confirmed ?Type acetaminophen 325 mg tablet (Pain 650 mg PO Q6H PRN pain 07/12/25 07/12/25 History Relief (acetaminophen)) escitalopram oxalate 20 mg tablet 20 mg PO DAILY 07/12/25 07/12/25 History ezetimibe 10 mg tablet 10 mg PO DAILY 07/12/25 07/12/25 History gabapentin 300 mg capsule 300 mg PO HS 07/12/25 07/12/25 History hydrochlorothiazide 25 mg tablet 25 mg PO DAILY 07/12/25 07/12/25 History lisinopril 20 mg tablet 20 mg PO BID 07/12/25 07/12/25 History metoprolol succinate 50 mg 50 mg PO DAILY 07/12/25 07/12/25 History tablet,extended release 24 hr rivaroxaban 20 mg tablet (Xarelto) 20 mg PO QPM 07/12/25 07/12/25 History Allergies Allergy/AdvReac Type Severity Reaction Status Date / Time aspirin Allergy Severe HIVES Verified 07/12/25 18:37 sulfamethoxazole Allergy Intermediate RASH Verified 07/12/25 18:37 trimethoprim Allergy Intermediate RASH Verified 07/12/25 18:37 Iodinated Contrast Media Allergy Mild Vomiting Verified 07/12/25 18:37 NSAIDS (Non-Steroidal Allergy Unknown HIVES Verified 07/12/25 18:37 Anti-Inflamma Penicillins Allergy Unknown HIVES Verified 07/12/25 18:37 PROPOXYPHENE HCL Allergy Intermediate RASH Uncoded 06/19/10 12:58 Vital Signs Vital Signs - 24 hr 07/12/25 11:55 07/12/25 17:08 Temperature 98.8 F 97.6 F Pulse Rate 64 62 Respiratory Rate 14 16 Blood Pressure 123/82 131/81 Pulse Oximetry 96 95 Oxygen Delivery Room Air Results Labs Labs: Short CBC 07/12/25 Range/Units 12:19 WBC 6.8 (4.5-10.0) K/mm3 Hgb 11.3 L (12.0-15.0) g/dL Hct 34.3 L (37.0-47.0) % Plt Count 269 (150-375) k/mm3 BMP 07/12/25 12:19 Sodium 138 Potassium 4.2 Chloride 102 Carbon Dioxide 28 BUN 15 Creatinine 0.82 Glucose 109 Calcium 9.2 Liver Function 07/12/25 Range/Units 12:19 Total Bilirubin 0.7 (0.2-1.3) mg/dL AST 22 (14-36) U/L ALT 15 (6-35) U/L Alkaline Phosphatase 129 H (38-126) U/L Albumin 3.9 (3.5-5.1) g/dL Urine 07/12/ Range/Units 12:19 Urine Color Yellow (Yellow) Urine Appearance Clear (Clear) Urine pH 6.0 (5.0-9.0) Ur Specific [place] > 1.045 H (1.001-1.035) Urine Protein Negative (Negative) mg/dL Urine Glucose (UA) Negative (Negative) mg/dL Assessment and Plan Assessment and plan (1) Appendiceal abscess: Code(s): K35.33 - Acute appendicitis with perforation, localized peritonitis, and gangrene, with abscess Status: Acute Assessment and Plan: incidental finding of possible ruptured appendicitis on surveillance CT scan for uterine cancer. CT abdomen pelvis with 2.9 cm complex fluid accumulation in the expected location of the appendix may represent ruptured appendix and developing abscess. Minimal pericolonic strandy changes about the proximal sigmoid colon with diverticuli are noted; very early or mild diverticulitis in this area is not excluded. patient has been experiencing right lower quadrant pain with nausea and vomiting since before . - General surgery consult; patient is asymptomatic at this time without concern for acute abdomen. No surgical intervention warranted. Abscess is too small for a perc drain. Conservative management with IV antibiotics. - Ceftriaxone and metronidazole started on 07/12 (2) Hypertension: Code(s): I10 - Essential (primary) hypertension Status: Chronic Assessment and Plan: continue metoprolol, HCTZ, lisinopril (3) Atrial fibrillation: Code(s): I48.91 - Unspecified atrial fibrillation Status: Chronic Assessment and Plan: rate controlled. Continue Xarelto, metoprolol Prior Studies I have reviewed the following patient records and this information was taken into consideration when formulating the assessment and plan.: previous labs, previous ER visits, previous hospitalizations and previous clinic visits Time Spent with Patient Time with patient: 45 - 74 minutes
[2025-07-12 20:00] VITALS: BP 100/51; PULSE 70; RESP 20; TEMP 36.3; O2SAT 96
[2025-07-12 23:31] VITALS: BP 115/70; PULSE 72; RESP 20; TEMP 36.2; O2SAT 97
[2025-07-13 04:00] VITALS: BP 117/62; PULSE 64; RESP 20; TEMP 36.4; O2SAT 95
[2025-07-13] MEDS: metroNIDAZOLE 500 MG/ISO 100ML 500 MG/100 ML BAG 100 MG IVPB ×2 (05:23→13:38)
[2025-07-13 05:37] LABS: Hematocrit 32.6 % (37.0-47.0); Hemoglobin 10.6 g/dL (12.0-15.0); Mean Corpuscular HGB Conc 32.5 g/dl (32-36); Mean Corpuscular Hemoglobin 32.3 pg (26-34); Mean Corpuscular Volume 99.4 fl (80-100); Platelet Count Result 229 k/mm3 (150-375); Red Blood Count 3.28 M/mm3 (4.2-5.4); White Blood Count 6.0 K/mm3 (4.5-10.0)
[2025-07-13 06:07] LABS: Alanine Aminotransferase 13 U/L (6-35); Albumin Level 3.5 g/dL (3.5-5.1); Alkaline Phosphatase 121 U/L (38-126); Anion Gap 5 mmol/L (4-12); Aspartate Amino Transferase 19 U/L (14-36); Bilirubin,Total 0.6 mg/dL (0.2-1.3); Blood Urea Nitrogen 16 mg/dL (7-17); Calcium 8.7 mg/dL (8.4-10.2); Carbon Dioxide 30 mmol/L (22-30); Chloride 103 mmol/L (98-107); Estimated CRCL calculation 67 ml/min; Estimated Glomerular Filt Rate > 60; Glucose 108 mg/dL (65-110); Potassium 4.2 mmol/L (3.4-5.0); Sodium 138 mmol/L (137-145); Total Protein 6.5 g/dL (6.3-8.2)
[2025-07-13 08:00] VITALS: BP 116/64; PULSE 62; RESP 19; TEMP 36.4; O2SAT 95
[2025-07-13 09:21] VITALS: PULSE 72
[2025-07-13] MEDS: EZETIMIBE 10 MG TABLET PO (09:21)
[2025-07-13] MEDS: METOPROLOL SUCCINATE EXT REL 50 MG TABCR PO (09:21)
[2025-07-13] MEDS: ESCITALOPRAM OXALATE 10 MG TABLET 20 MG PO (09:21)
[2025-07-13] MEDS: ACETAMINOPHEN 325 MG TABLET 650 MG PO (09:28)
--- NOTE | 2025-07-13 10:31 | PM.PNGS ---
Progress Note: A&P Assessment and Plan (1) Appendiceal abscess: Code(s): K35.33 - Acute appendicitis with perforation, localized peritonitis, and gangrene, with abscess Status: Acute Assessment and Plan: Patient stable overnight with no acute events. Denies any abdominal pain. Exam benign. WBC remains normal. No fevers. Continue IV antibiotics. Will discuss plan with general surgeon. May consider interval repeat imaging to assess abscess. No plans for surgical intervention at this time. Patient can have diet. (2) History of endometrial cancer: Code(s): Z85.42 - Personal history of malignant neoplasm of other parts of uterus Status: Acute Plan Discussed patient's case and plan of care with Dr. Grewal. Subjective Subjective Date/Time Seen: 07/13/25 10:31 Patient reports: no new complaints, feels better, tolerating a regular diet, bowel movement and afebrile Interval history: No acute events overnight. Patient sitting on edge of bed today upon my visit. WBC remains normal. Exam Const: General: comfortable and no acute distress GI: Inspection: non-distended, Pannus present and obesity GI Palp: Yes Soft to palpation, No Tenderness to palpation present (GI) and No Guarding due to palpation present (GI) Auscultation: normal bowel sounds Objective Data Vital Signs Vital Signs: Vital Signs - 24 hr 07/12/25 11:55 07/12/25 17:08 07/12/25 20:00 Temperature 98.8 F 97.6 F 97.3 F L Pulse Rate 64 62 70 Respiratory Rate 14 16 20 Blood Pressure 123/82 131/81 100/51 L Pulse Oximetry 96 95 96 Oxygen Delivery Room Air 07/12/25 20:00 07/12/25 23:31 07/13/25 04:00 Temperature 97.2 F L 97.6 F Pulse Rate 72 64 Respiratory Rate 20 20 Blood Pressure 115/70 117/62 Pulse Oximetry 96 97 95 Oxygen Delivery Room Air 07/13/25 08:00 07/13/25 09:20 07/13/25 09:21 Temperature 97.6 F Pulse Rate 62 72 Respiratory Rate 19 Blood Pressure 116/64 Pulse Oximetry 95 Oxygen Delivery Room Air Intake/Output Intake/Output: Intake & Output 07/10/25 07/11/25 07/12/25 07/13/25 23:59 23:59 23:59 23:59 Intake Total 730 784 Output Total 3 Balance 730 781 Meds/Results Medications: Active Medications Generic Name Dose Route Start Last Admin Trade Name Greg PRN Reason Stop Dose Admin Acetaminophen 650 mg 07/13/25 03:28 07/13/25 09:28 Acetaminophen 325 Mg Tablet PO 650 mg Q6H PRN Administration Pain Ezetimibe 10 mg 07/13/25 09:00 07/13/25 09:21 Ezetimibe 10 Mg Tablet PO 10 mg DAILY COUNTS INCLUDE 234 BEDS AT THE [facility] Administration Escitalopram Oxalate 20 mg 07/13/25 09:00 07/13/25 09:21 Escitalopram Oxalate 10 Mg Tablet PO 20 mg DAILY COUNTS INCLUDE 234 BEDS AT THE [facility] Administration Gabapentin 300 mg 07/13/25 21:00 Gabapentin 300 Mg Capsule PO HS COUNTS INCLUDE 234 BEDS AT THE [facility] Hydrochlorothiazide 25 mg 07/13/25 09:00 07/13/25 09:21 Hydrochlorothiazide 25 Mg Tablet PO Not Given DAILY COUNTS INCLUDE 234 BEDS AT THE [facility] Ceftriaxone Sodium 1 gm/ 50 mls @ 100 mls/hr 07/13/25 15:00 Sodium Chloride IVPB Q24H COUNTS INCLUDE 234 BEDS AT THE [facility] Metronidazole 500 mg in 100 mls @ 100 mls/hr 07/12/25 23:00 07/13/25 05:23 Flagyl 500 Mg/Iso Soln 100 Ml IVPB 100 mls/hr Q8HR COUNTS INCLUDE 234 BEDS AT THE [facility] Administration Lisinopril 20 mg 07/13/25 09:00 07/13/25 09:21 Lisinopril 20 Mg Tablet PO 20 mg Q12HR COUNTS INCLUDE 234 BEDS AT THE [facility] Administration Metoprolol Succinate 50 mg 07/13/25 09:00 07/13/25 09:21 Metoprolol Succinate Ext Rel 50 Mg Tabcr PO 50 mg DAILY COUNTS INCLUDE 234 BEDS AT THE [facility] Administration Rivaroxaban 20 mg 07/13/25 17:00 Rivaroxaban 20 Mg Tablet PO DAILY@1700 COUNTS INCLUDE 234 BEDS AT THE [facility] Radiology Results: ITS Impressions Abdomen/Pelvis CT 07/12/25 13:07 IMPRESSION: 1. A 2.9 cm complex fluid accumulation in the expected location of the appendix may represent ruptured appendix and developing abscess. 2. Minimal pericolonic strandy changes about the proximal sigmoid colon with diverticuli are noted; very early or mild diverticulitis in this area is not excluded. Labs Labs: Laboratory Results - last 24 hr 07/12/25 07/12/25 07/13/25 12:19 15:47 05:25 WBC 6.8 6.0 RBC 3.47 L 3.28 L Hgb 11.3 L 10.6 L Hct 34.3 L 32.6 L MCV 98.8 99.4 MCH 32.6 32.3 MCHC 32.9 32.5 RDW 13.2 13.2 Plt Count 269 229 MPV 9.6 9.4 Immature Gran % (Auto) 0.6 H Neut % (Auto) 74.9 H Lymph % (Auto) 14.3 L [place] % (Auto) 8.8 H Eos % (Auto) 1.0 Baso % (Auto) 0.4 Lymph # (Auto) 0.97 [place] # (Auto) 0.6 Eos # (Auto) 0.1 Baso # (Auto) 0.0 Abs Immat Gran (auto) 0.04 H Absolute Neuts (auto) 5.1 Absolute Nucleated RBC 0.000 Nucleated RBC % 0.0 PT 16.0 H INR 1.3 APTT 31.7 Sodium 138 138 Potassium 4.2 4.2 Chloride 102 103 Carbon Dioxide 28 30 Anion Gap 8 5 BUN 15 16 Creatinine 0.82 0.85 Estim Creat Clear Calc 69 67 Estimated GFR > 60 > 60 Glucose 109 108 Lactic Acid 1.9 Calcium 9.2 8.7 Total Bilirubin 0.7 0.6 AST 22 19 ALT 15 13 Alkaline Phosphatase 129 H 121 Total Protein 7.1 6.5 Albumin 3.9 3.5 Lipase 334 H Urine Color Yellow Urine Appearance Clear Urine pH 6.0 Ur Specific [place] > 1.045 H Urine Protein Negative Urine Glucose (UA) Negative Urine Ketones Negative Ur Blood (Man) Negative Urine Nitrate Negative Urine Bilirubin Negative Urine Urobilinogen 0.2 Leukocyte Esterase Rfl Negative
[2025-07-13 12:00] VITALS: BP 114/62; PULSE 64; RESP 18; TEMP 36.5; O2SAT 96
--- NOTE | 2025-07-13 13:31 | PM.DS ---
DS: Admitting Diagnosis Discharge Date 07/13/25 Admitting Diagnosis Abdominal pain DS: Discharge Diagnosis Discharge Diagnosis (1) Appendiceal abscess: Code(s): K35.33 - Acute appendicitis with perforation, localized peritonitis, and gangrene, with abscess Status: Acute (2) Hypertension: Code(s): I10 - Essential (primary) hypertension Status: Chronic (3) Atrial fibrillation: Code(s): I48.91 - Unspecified atrial fibrillation Status: Chronic (4) History of endometrial cancer: Code(s): Z85.42 - Personal history of malignant neoplasm of other parts of uterus Status: Acute DS: Summary Hospital Course Reason for hospitalization: 74yo female with a past medical history of AFib, hypertension, uterine cancer in remission who presented to the ED on 07/12/[address] abdomen pelvis at an outside facility was concerning for ruptured appendicitis. Please see H&P for details. Hospital Course: Vital signs were stable and she was afebrile. CBC was normal except for a Hgb 11.3. CMP was essentially normal. Lipase 334. UA was clear. CT Abd/pelvis showing a 2.9 cm complex fluid accumulation in the expected location of the appendix that may represent ruptured appendix and developing abscess. No free air or pneumatosis noted. Minimal pericolonic stranding changes about the proximal sigmoid colon with diverticuli are noted as well. BCx collected and IV abx started. WBC remained normal and she remained afebrile. She had mild RLQ abdominal pain but this resolved. She was eating and tolerating it. +BMs that are loose but has had this for the past 1-2 months felt related to the untreated abscess. General surgery was consulted but felt the abscess was too small to drain and that patient could go home with oral abx with plans to follow-up as outpatient. Patient is in agreement with this plan. She overall did well and was able to be discharged home on 07/13/25. Discharge instructions discussed including side effects of medications. All questions answered. Status at Discharge Cognitive/behavioral status at discharge: stable Time Spent with Patient Time attestation: Total time spent providing and/or coordinating discharge services: 34 minutes Time spent: Greater than 30 minutes Exam Narrative: AF 97.6 116/64 72 19 95% ra Gen - NARD Chest - CTA bilaterally, nml RR CV - RRR S1/S2 Abd - Soft, NT/ND, Positive BS Ext - No pedal edema Psych - Nml mood and affect Skin - Warm and dry DS: Data Data Completed and Pending Labs on day of discharge: Labs from last 24 hours 07/13/25 07/12/25 05:25 15:47 WBC 6.0 RBC 3.28 L Hgb 10.6 L Hct 32.6 L MCV 99.4 MCH 32.3 MCHC 32.5 RDW 13.2 Plt Count 229 MPV 9.4 PT 16.0 H INR 1.3 APTT 31.7 Sodium 138 Potassium 4.2 Chloride 103 Carbon Dioxide 30 Anion Gap 5 BUN 16 Creatinine 0.85 Estim Creat Clear Calc 67 Estimated GFR > 60 Glucose 108 Calcium 8.7 Total Bilirubin 0.6 AST 19 ALT 13 Alkaline Phosphatase 121 Total Protein 6.5 Albumin 3.5 Discharge Plan Discharge Attending physician on discharge: Michael Palacios Consulting providers: Luis Grewal Discharging Clinician: Michael Palacios Anticipated Discharge Date/Time: 07/13/25 13:39 Patient Disposition: Home Activity: no straining and as tolerated Diet: heart healthy Discharge Instructions: Please complete your antibiotic course even if you are starting to feel well. Take precautions to avoid falls. Contact your doctor or call 911 and come to the Emergency Room if you have worening abdominal pain, fevers or other worrisome symptoms. Avoid NSAIDs (ibuprofen, naproxen, Aleve). Tylenol is safe to take. Follow-up with your primary care provider in 1-2 weeks. Please call for appointment. Call the general surgery office at to schedule a follow up appointment in 2 weeks. Thank you for using [facility] for your health care needs. Patient Instructions: Antibiotic Form, Rivaroxaban (By mouth) Patient Language: Mauritian Stand Alone Forms: General Discharge Information Follow-up/Referrals: Rosa No MD [Primary Care Provider, Family Practice] - Call for Appointment Luis Grewal DO [Physician, General Surgery] - Call for Appointment Referral Note: 2 weeks Discharge Medications: New ciprofloxacin HCl 500 mg tablet 500 mg PO Q12H Qty: 28 0RF metronidazole 500 mg tablet 500 mg PO Q8H Qty: 42 0RF Continued escitalopram oxalate 20 mg tablet 20 mg PO DAILY ezetimibe 10 mg tablet 10 mg PO DAILY gabapentin 300 mg capsule 300 mg PO HS hydrochlorothiazide 25 mg tablet 25 mg PO DAILY lisinopril 20 mg tablet 20 mg PO BID metoprolol succinate 50 mg tablet extended release 24 hr 50 mg PO DAILY Xarelto 20 mg tablet 20 mg PO QPM acetaminophen [Pain Relief (acetaminophen)] 325 mg tablet 650 mg PO Q6H PRN (Reason: pain) Date of admission: 07/13/25 10:22 Primary Care Provider: Rosa No Admitting Provider: Eliot Lopez Attending physician on admission: Eliot Lopez Condition: Stable Hospitalist MIPS Heart Failure (Exclusion) Patient has history of Heart Transplant or Left Ventricular Assistive Device?: No IF YES, STOP HERE Heart Failure (Qualifier) Patient has current or prior documentation of LVEF less than or equal to 40%, or mod/servere depressed LVSF?: No IF NO, STOP HERE
[2025-07-13 15:05] LABS: Toxigenic C. Diff NEGATIVE (NEGATIVE)
[2025-07-13] MEDS: cefTRIAXone 1 GM in SODIUM CHLORIDE 0.9% IV 50 ML 100 ML IVPB (15:08)
[2025-07-13 16:00] VITALS: BP 114/51; PULSE 72; RESP 17; TEMP 36.7; O2SAT 98
== END 2025-07-13 16:30 | disposition home or self-care (01) ==
LOC: ANHED 16:02 → ANH2MED 17:30
PROVIDERS: Emergency Medicine; Nurse Practitioner Adult Health; Admitting Provider Internal Medicine; Emergency Provider Physician Assistant; PCP Family Medicine; Visit Provider Internal Medicine
DX: K35.33 Acute appendicitis with perforation, localized peritonitis, and gangrene, with abscess (principal); I10 Essential (primary) hypertension; I48.91 Unspecified atrial fibrillation; Z90.49 Acquired absence of other specified parts of digestive tract; Z79.01 Long term (current) use of anticoagulants; Z90.710 Acquired absence of both cervix and uterus; Z85.42 Personal history of malignant neoplasm of other parts of uterus; Z92.21 Personal history of antineoplastic chemotherapy; Z92.3 Personal history of irradiation
CPT/HCPCS: 36415; 74176; 80053; 81003; 83605; 83690; 85025; 85027; 85610; 85730; 87040; 87493; 96365; 96366; 96367; 99285; A9270; G0378; J0696; J1836